=== PATIENT | female | born 1970 | race Caucasian/White ===

== ENCOUNTER 2017-10-07 06:27 | Emergency (ER) | payer SELFPAY ==
[2017-10-07] MEDS ORDERED: ACETAMINOPHEN 500 MG TAB ONE (06:54)
[2017-10-07] MEDS ORDERED: LEVALBUTEROL 0.63 MG/3 ML NEB ONE (06:54)
--- NOTE | 2017-10-07 07:59 | EDPHYS ---
Physician Documentation [facility] Name: Estelle Ashley Age: 47 yrs Sex: Female : 1970 Arrival Date: 10/07/2017 Time: 06:28 Bed 7 Private MD: Alberto Castaneda ED Physician Barron Albert HPI: 10/07 06:50 This 47 yrs old Female presents to ER via Ambulatory with complaints of Sore cp Throat, Fever. 06:50 The patient presents with sore throat. cp 06:50 Onset: The symptoms/episode began/occurred 4 day(s) ago. cp 06:50 Severity of symptoms: in the emergency department the symptoms are unchanged, despite cp home interventions. Associated signs and symptoms: Pertinent positives: cough, dysphagia, headache, Pertinent negatives vomiting. 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 - Social history:: Smoking status: Patient uses tobacco products, smokes one-half pack cigarettes per day. - Ebola Screening: : Patient negative for fever greater than or equal to 101.5 degrees Fahrenheit, and additional compatible Ebola Virus Disease symptoms. ROS: 06:55 Constitutional: Positive for body aches, fever, Negative for poor PO intake. cp 06:55 Eyes: Negative for injury, pain, redness, and discharge. cp 06:55 ENT: Positive for sore throat, Negative for ear pain, difficulty swallowing, difficulty handling secretions. 06:55 Neck: Negative for pain with movement, pain at rest, stiffness. 06:55 Respiratory: Positive for cough, Negative for shortness of breath, wheezing. 06:55 Abdomen/GI: Negative for abdominal pain, nausea, vomiting, and diarrhea. 06:55 Skin: Negative for cellulitis, rash. 06:55 Neuro: Positive for headache, Negative for altered mental status, weakness. 06:55 All other systems are negative. Exam: 07:00 Constitutional: The patient appears in no acute distress, alert, awake, non-toxic, well cp developed, well nourished, appears mildly ill 07:00 Head/Face: Normocephalic, atraumatic. cp 07:00 Eyes: Periorbital structures: appear normal, Conjunctiva: normal, no exudate, no injection, Sclera: no appreciated abnormality, Lids and lashes: appear normal, bilaterally. 07:00 ENT: External ear(s): are unremarkable, Ear canal(s): are normal, clear, TM's: bulging, is not appreciated, bilaterally, dullness, bilaterally, erythema, is not appreciated, bilaterally, Nose: is normal, Mouth: Lips: moist, Oral mucosa: pink and intact, moist, Posterior pharynx: Airway: no evidence of obstruction, patent, Tonsils: with erythema, no exudate, Uvula: midline, non-edematous, swelling, is not appreciated, erythema, that is moderate, exudate, is not appreciated, Voice: is hoarse. 07:00 Neck: ROM/movement: is normal, is supple, without pain, no range of motions limitations, no meningismus, no nuchal rigidity, Lymph nodes: lymphadenopathy is appreciated. 07:00 Chest/axilla: Inspection: normal, Palpation: is normal, no crepitus, no tenderness. 07:00 Cardiovascular: Rate: tachycardic, Rhythm: regular. 07:00 Respiratory: the patient does not display signs of respiratory distress, Respirations: normal, no use of accessory muscles, no retractions, no splinting, no tachypnea, labored breathing, is not present, Breath sounds: are clear throughout, no decreased breath sounds, no stridor, no wheezing. 07:00 Abdomen/GI: Inspection: abdomen appears normal, Palpation: abdomen is soft and cp non-tender, in all quadrants, involuntary guarding, is not appreciated. 07:00 Skin: cellulitis, is not appreciated, no rash present. Vital Signs: 06:45 BP 132 / 79; Pulse 115; Resp 19 S; Temp 100.2(O); Pulse Ox 100% on R/A; Weight 76.66 kg jd3 (R); Height 5 ft. 7 in. (170.18 cm) (R); Pain 10/10; 07:41 BP 126 / 83; Pulse 104; Resp 20 S; Temp 99.1(O); Pulse Ox 99% on R/A; Pain 5/10; jl7 08:07 BP 124 / 82; Pulse 98; Resp 16 S; Pulse Ox 99% on R/A; Pain 5/10; jl7 06:45 Body Mass Index 26.47 (76.66 kg, 170.18 cm) jd3 MDM: 06:41 Patient medically screened. cp 07:55 Data reviewed: vital signs, nurses notes, lab test result(s), radiologic studies, plain cp films. 07:55 Test interpretation: by ED physician or midlevel provider: plain radiologic studies. cp Counseling: I had a detailed discussion with the patient and/or guardian regarding: the historical points, exam findings, and any diagnostic results supporting the discharge/admit diagnosis, lab results, radiology results, to return to the emergency department if symptoms worsen or persist or if there are any questions or concerns that arise at home. Response to treatment: the patient's symptoms have mildly improved after treatment. 10/07 06:48 Order name: Strep; Complete Time: 07:23 cp 10/07 07:23 Interpretation: Reviewed. cp 10/07 06:48 Order name: Influenza Screen (a \T\ B); Complete Time: 07:23 cp 10/07 07:23 Interpretation: Reviewed. cp 10/07 06:48 Order name: XRAY Chest Pa And Lat (2 Views); Complete Time: 07:57 cp 10/08 07:57 Interpretation: Report reviewed. cp 10/07 07:15 Order name: Throat Culture EDMS 10/07 07:30 Order name: Urine Dipstick--Ancillary (enter results); Complete Time: 07:57 ag 10/07 07:30 Order name: Urine --Ancillary (enter results); Complete Time: 07:57 ag 10/07 06:48 Order name: Urine Dipstick-Ancillary (obtain specimen); Complete Time: 07:30 cp 10/07 06:48 Order name: Urine Test (obtain specimen); Complete Time: 07:30 cp Administered Medications: 06:54 Drug: Xopenex 1.25 mg Route: Inhalation; jd3 07:41 Follow up: Response: No adverse reaction jl7 06:54 Drug: Tylenol 1000 mg Route: PO; jd3 07:41 Follow up: Response: No adverse reaction; Temperature is decreased; Pain is decreased jl7 Disposition: 10/07/17 07:58 Discharged to Home. Impression: Acute tonsillitis, unspecified, Cough. - Condition is Stable. - Discharge Instructions: Tonsillitis, Cough, Adult. - Prescriptions for Tessalon Perles 100 mg Oral Capsule - take 1 capsule by ORAL route every 8 hours As needed; 15 capsule. Zithromax Z- Ricardo 250 mg Oral Tablet - take 1 tablet by ORAL route as directed for 5 days Day 1 - take two (2) tablets one time. Day 2, 3, 4 , 5 take one (1) tablet once daily.; 6 tablet. Albuterol Sulfate 90 mcg/actuation - inhale 1-2 puff by INHALATION route every 4-6 hours; 1 Inhaler. - Work release form, Medication Reconciliation Form, Thank You Letter, Antibiotic Education, Prescription Opioid Use form. - Follow up: Private Physician; When: 2 - 3 days; Reason: Recheck today's complaints. - Problem is new. - Symptoms have improved. Addendum: 10/08/2017 09:26 Co-signature as Attending Physician, Barron Albert MD I agree with the assessment and c boyce plan of care. Signatures: Dispatcher [employer] EDBarron Ashley MD MD cha Page, Corey, PA PA cp Leal, Jahala RN RN jl7 Vicente Noble RN RN jd3 Corrections: (The following items were deleted from the chart) 10/07 08:08 07:58 10/07/2017 07:58 Discharged to Home. Impression: Acute tonsillitis, unspecified; jl7 Cough. Condition is Stable. Forms are Medication Reconciliation Form, Thank You Letter, Antibiotic Education, Prescription Opioid Use. Follow up: Private Physician; When: 2 - 3 days; Reason: Recheck today's complaints. Problem is new. Symptoms have improved. cp
--- NOTE | 2017-10-07 07:59 | ER ---
Nurse's Notes [facility] Name: Estelle Ashley Age: 47 yrs Sex: Female : 1970 Arrival Date: 10/07/2017 Time: 06:28 Bed 7 Private MD: Alberto Castaneda Diagnosis: Acute tonsillitis, unspecified;Cough Presentation: 10/07 06:41 Presenting complaint: Patient states: "I don't know if I have the flu or what, but I jd3 have had a fever since last Sunday and my throat has been sore as well as having a splitting headache and cough.". Transition of care: patient was not received from another setting of care. Onset of symptoms was October 03, 2017. Risk Assessment: Do you want to hurt yourself or someone else? Patient reports no desire to harm self or others. Initial Sepsis Screen: Does the patient meet any 2 criteria? HR > 90 bpm. Yes Does the patient have a suspected source of infection? No. Patient's initial sepsis screen is negative. Care prior to arrival: None. 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 - Social history:: Smoking status: Patient uses tobacco products, smokes one-half pack cigarettes per day. - Ebola Screening: : Patient negative for fever greater than or equal to 101.5 degrees Fahrenheit, and additional compatible Ebola Virus Disease symptoms. Screenin:48 Abuse screen: Denies threats or abuse. Nutritional screening: No deficits noted. jd3 Tuberculosis screening: No symptoms or risk factors identified. Fall Risk Ambulatory Aid- None/Bed Rest/Nurse Assist (0 pts). Gait- Normal/Bed Rest/Wheelchair (0 pts) Mental Status- Oriented to own ability (0 pts). Total Gee Fall Scale indicates No Risk (0-24 pts). Assessment: 06:46 General: Appears uncomfortable, Behavior is calm, cooperative. Pain: Complains of pain jd3 in head and throat Pain currently is 10 out of 10 on a pain scale. Quality of pain is described as aching, pressure. Neuro: Level of Consciousness is awake, alert, obeys commands, Oriented to person, place, time, situation, Appropriate for age Moves all extremities. Full function Gait is steady, Pupils are PERRLA. Cardiovascular: Heart tones S1 S2 present Capillary refill < 3 seconds Patient's skin is warm and dry. Respiratory: Reports shortness of breath cough that is Airway is patent Respiratory effort is even, unlabored, Respiratory pattern is regular, symmetrical, Breath sounds are clear bilaterally. GI: Abdomen is round Bowel sounds present X 4 quads. Abd is soft and non tender X 4 quads. : No signs and/or symptoms were reported regarding the genitourinary system. EENT: Throat is pink. Derm: Skin is intact, Skin is dry, Skin is normal, Skin temperature is warm. Musculoskeletal: Circulation, motion, and sensation intact. Range of motion: intact in all extremities. 07:10 Reassessment: Patient appears in no apparent distress at this time. Pain: Complains of jl7 pain in forehead Pain does not radiate. Pain currently is 10 out of 10 on a pain scale. Quality of pain is described as pressure, "It feels different than my previous migraines." Is continuous. Neuro: Level of Consciousness is awake, alert, obeys commands, Oriented to person, place, time, situation, Moves all extremities. Gait is steady, Speech is normal, Facial symmetry appears normal, Pupils are PERRLA. Cardiovascular: Heart tones S1 S2 present Patient's skin is warm and dry. Respiratory: Airway is patent Respiratory effort is even, unlabored, Respiratory pattern is regular, symmetrical, Breath sounds are clear bilaterally. Derm: Skin is pink, warm \\T\\ dry. Vital Signs: 06:45 BP 132 / 79; Pulse 115; Resp 19 S; Temp 100.2(O); Pulse Ox 100% on R/A; Weight 76.66 kg jd3 (R); Height 5 ft. 7 in. (170.18 cm) (R); Pain 10/10; 07:41 BP 126 / 83; Pulse 104; Resp 20 S; Temp 99.1(O); Pulse Ox 99% on R/A; Pain 5/10; jl7 08:07 BP 124 / 82; Pulse 98; Resp 16 S; Pulse Ox 99% on R/A; Pain 5/10; jl7 06:45 Body Mass Index 26.47 (76.66 kg, 170.18 cm) jd3 ED Course: 06:28 Patient arrived in ED. al2 06:28 Alberto Castaneda MD is Private Physician. al2 06:32 Barron Garcia PA is PHCP. cp 06:41 Barron Garcia PA is PHCP. cp 06:41 Barron Albert MD is Attending Physician. cp 06:42 Triage completed. jd3 06:46 Arm band placed on. jd3 06:48 Patient has correct armband on for positive identification. Bed in low position. Call [place] light in reach. Side rails up X 1. 06:49 Vicente Noble RN is Primary Nurse. jd3 06:54 Strep Sent. jd3 06:54 Influenza Screen (a \\T\\ B) Sent. jd3 07:06 XRAY Chest Pa And Lat (2 Views) In Process Unspecified. EDMS 08:07 No provider procedures requiring assistance completed. Patient did not have IV access jl7 during this emergency room visit. Administered Medications: 06:54 Drug: Xopenex 1.25 mg Route: Inhalation; jd3 07:41 Follow up: Response: No adverse reaction jl7 06:54 Drug: Tylenol 1000 mg Route: PO; jd3 07:41 Follow up: Response: No adverse reaction; Temperature is decreased; Pain is decreased jl7 Outcome: 07:58 Discharge ordered by . cp 08:07 Discharged to home ambulatory. jl7 08:07 Condition: stable 08:07 Discharge instructions given to patient, Instructed on discharge instructions, follow up and referral plans. medication usage, Demonstrated understanding of instructions, follow-up care, medications, Prescriptions given X 3. 08:08 Patient left the ED. jl7 Signatures: Dispatcher [employer] EDMS Barron Garcia PA PA cp Leal, Jahala, RN RN jl7 Vicente Noble RN RN jd3 Summer Iqbal al2
[2017-10-07 08:07] LABS: Urine Blood 3+ (NEG); Urine Glucose 2+ (NEG); Urine Protein 3+ (NEG); Urine Specific Gravity >1.030 (1.005-1.030)
--- NOTE | 2017-10-07 11:53 | RAD REPORT ---
EXAM DESCRIPTION: RAD - Chest Pa And Lat (2 Views) - 10/07/2017 7:06 am CLINICAL HISTORY: Cough;Fever Chest pain. COMPARISON: Chest Single View dated 01/08/2017; Chest Single View dated 01/07/2017 FINDINGS: The lungs are clear. The heart is normal in size. No displaced fractures. IMPRESSION: No acute or concerning finding suspected.
== END 2017-10-07 08:08 | disposition home or self-care (01) ==
LOC: ER 06:27
DX: J03.90 Acute tonsillitis, unspecified (principal); I10 Essential (primary) hypertension; E11.9 Type 2 diabetes mellitus without complications; F17.210 Nicotine dependence, cigarettes, uncomplicated; Z88.6 Allergy status to analgesic agent
CPT/HCPCS: 71046; 81003; 81025; 87070; 87081; 87804; 99284

== ENCOUNTER 2017-10-08 11:18 | Emergency (ER) | payer SELFPAY ==
[2017-10-08] MEDS ORDERED: NA CHLORIDE 0.9% 1,000 ML ONE (12:00)
--- NOTE | 2017-10-08 12:19 | RAD REPORT ---
EXAM DESCRIPTION: RAD - Chest Single View - 10/08/2017 12:13 pm CLINICAL HISTORY: dysphagia, shortness of breath Chest pain. COMPARISON: Chest Pa And Lat (2 Views) dated 10/07/2017; Chest Single View dated 01/08/2017; Chest Sing le View dated 01/07/2017 FINDINGS: Portable technique limits examination quality. The lungs are grossly clear. The heart is normal in size. No displaced fractures. IMPRESSION: No acute intrathoracic process suspected.
[2017-10-08 12:20] LABS: Absolute Lymphocytes (CBC) 1.9 K/uL (0.7-4.9); Absolute Neutrophil 7.4 K/uL (1.8-8.0); Basophils % 0.8 % (0-1.3); Eosinophils % 2.6 % (0-4.4); Hematocrit 30.9 % (36.0-45.0); Lymphocytes % 17.9 % (15.3-44.8); MCH 28.8 pg (27.0-35.0); MCV 84.1 fL (80-100); MPV 9.8 fL (7.6-11.3); Monocytes % 9.3 % (3.3-12.3); RBC Red Blood Cell Count 3.68 M/uL (3.86-4.86)
[2017-10-08 12:35] LABS: Albumin 2.9 g/dL (3.4-5.0); Bilirubin Total 0.4 mg/dL (0.2-1.0); Potassium 3.9 mmol/L (3.5-5.1); Protein, Total 7.2 g/dL (6.4-8.2)
--- NOTE | 2017-10-08 13:12 | RAD REPORT ---
EXAM DESCRIPTION: CT - Soft Tissue Neck W/Contr CLINICAL HISTORY: dysphagia COMPARISON: No comparisons TECHNIQUE All CT scans are performed using dose optimization technique as appropriate and may includ e automated exposure control or mA/KV adjustment according to patient size. FINDINGS: Significant enlargement of the adenoidal tissue is seen. Nasopharyngeal and nasal cavity s oft tissue is also significantly prominent. The mucosa of the pharynx shows significant edema and enh ancement. There is significant enlargement of both palatine tonsils with right-sided rim enhancing fl uid collection measuring 9 x 7 mm seen likely representing a peritonsillar abscess. No prevertebral space abscess is seen. The lingual tonsils are slightly thickened. A 10 x 8 mm low-density lesion is seen in the right aspec t of the vallecula. Multiple enlarged lymph nodes are seen along the neck bilaterally, on the right the largest measuring 12 mm, on the left the largest measuring 16 mm. Carotid artery and jugular vein bilaterally shows no rmal flow. Symmetric salivary glands are noted. Hyperostosis of the left maxillary antrum is seen suggesting chronic sinusitis. IMPRESSION: Significant lymphoid enlargement and mucosal edema and enhancement in the pharynx is mos t compatible with infection. A small right-sided peritonsillar abscess is suspected measuring 9 x 7 m m. 10 x 8 mm low-density lesion in the right aspect of the vallecula is nonspecific. Multiple enlarged lymph nodes in the neck likely represent cervical lymphadenitis.
[2017-10-08] MEDS ORDERED: DEXAMETHASONE 10 MG/ML VIAL ONE (13:28)
[2017-10-08] MEDS ORDERED: NA CHLORIDE 0.9% 100 ML IV ONE (13:29)
[2017-10-08] MEDS ORDERED: CLINDAMYCIN 900MG/D5W 900 MG/50 ML BAG IV ONE (13:29)
[2017-10-08] MEDS ORDERED: CEFTRIAXONE/SWI 1gm 1 GM/10 ML SYR ONE (13:36)
--- NOTE | 2017-10-08 13:43 | EDPHYS ---
Physician Documentation [facility] Name: Estelle Ashley Age: 47 yrs Sex: Female : 1970 Arrival Date: 10/08/2017 Time: 11:22 Bed 13 Private MD: Alberto Castaneda ED Physician Titus Rosado HPI: 10/08 11:51 This 47 yrs old Female presents to ER via Ambulatory with complaints of cp Dizziness, Breathing Difficulty. 11:51 The patient presents with lightheadedness. cp 11:51 The patient presents with sore throat, dysphagia, of both solids and liquids. cp 11:51 The patient describes throat pain as constant. cp 11:51 Associated signs and symptoms: Pertinent negatives fever. The patient has been recently cp seen at the [facility] Emergency Department, yesterday, for similar complaints was given a prescription for antibiotics. 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 - Social history:: Smoking status: Patient uses tobacco products, smokes one-half pack cigarettes per day. - Ebola Screening: : No symptoms or risks identified at this time. ROS: 12:00 Constitutional: Negative for body aches, chills, fever, poor PO intake. cp 12:00 Eyes: Negative for injury, pain, redness, and discharge. cp 12:00 ENT: Positive for difficulty swallowing, sore throat, Negative for drainage from ear(s), ear pain, dental pain, difficulty handling secretions. 12:00 Neck: Positive for swollen nodes, tenderness, Negative for pain with movement, pain at rest, stiffness. 12:00 Cardiovascular: Negative for chest pain, edema, palpitations. 12:00 Respiratory: Negative for shortness of breath, wheezing. 12:00 Abdomen/GI: Negative for abdominal pain, nausea, vomiting, and diarrhea. 12:00 Skin: Negative for cellulitis, rash. 12:00 Neuro: Positive for dizziness, Negative for altered mental status, headache, syncope, near syncope, weakness. 12:00 All other systems are negative. Exam: 12:05 Constitutional: The patient appears in no acute distress, alert, awake, cp non-diaphoretic, non-toxic, well developed, well nourished. 12:05 Head/Face: Normocephalic, atraumatic. cp 12:05 Eyes: Periorbital structures: appear normal, Pupils: equal, round, and reactive to light and accomodation, Extraocular movements: intact throughout, Conjunctiva: normal, no exudate, no injection, Sclera: no appreciated abnormality, Lids and lashes: appear normal, bilaterally. 12:05 ENT: External ear(s): are unremarkable, Ear canal(s): are normal, clear, TM's: bulging, is not appreciated, bilaterally, erythema, is not appreciated, bilaterally, Nose: is normal, Mouth: Lips: moist, Oral mucosa: moist, Posterior pharynx: Airway: no evidence of obstruction, patent, Tonsils: bilaterally enlarged, right larger than left, Uvula: midline, non-edematous, swelling, that is mild, erythema, that is moderate, exudate, is not appreciated, Voice: is hoarse. 12:05 Neck: ROM/movement: is normal, is supple, without pain, no range of motions limitations, no meningismus, no nuchal rigidity, Lymph nodes: lymphadenopathy is appreciated, anterior cervical nodes. 12:05 Chest/axilla: Inspection: normal, Palpation: is normal, no crepitus, no tenderness. 12:05 Cardiovascular: Rate: tachycardic, Rhythm: regular, Edema: is not appreciated, JVD: is not appreciated. 12:05 Respiratory: the patient does not display signs of respiratory distress, Respirations: normal, no use of accessory muscles, no retractions, no splinting, no tachypnea, labored breathing, is not present, Breath sounds: are clear throughout, no decreased breath sounds, no stridor, no wheezing. 12:05 Abdomen/GI: Exam negative for discomfort, distension, guarding, Inspection: abdomen appears normal. 12:05 Skin: cellulitis, is not appreciated, no rash present. Vital Signs: 11:32 BP 123 / 75; Pulse 102; Resp 18; Temp 98.0; Pulse Ox 100% ; Weight 76.66 kg; Height 5 sv ft. 7 in. (170.18 cm); Pain 8/10; 12:17 BP 129 / 79; Pulse 98; Resp 18; Pulse Ox 99% on R/A; aj 12:45 BP 139 / 87; Pulse 81; Resp 19; Pulse Ox 99% on R/A; aj 14:12 BP 121 / 81; Pulse 79; Resp 19; Pulse Ox 99% on R/A; aj 11:32 Body Mass Index 26.47 (76.66 kg, 170.18 cm) sv MDM: 11:43 Patient medically screened. 13:20 Data reviewed: vital signs, nurses notes, lab test result(s), radiologic studies, CT cp scan. 13:30 Physician consultation: Hanna Rich MD was called at 13:25, was contacted at 13:25, regarding consult, patient's condition, and will see patient in office, tomorrow, would like medications started, Rocephin, clindamycin. 10/08 11:53 Order name: CBC with Diff; Complete Time: 12:57 10/08 12:57 Interpretation: Normal except: RBC 3.68; HGB 10.6; HCT 30.9. 10/08 11:53 Order name: CMP; Complete Time: 12:57 10/08 11:53 Order name: CT Soft Tissue Neck W/contr; Complete Time: 13:18 10/08 11:53 Order name: [place] Screen Profile; Complete Time: 12:57 10/08 11:53 Order name: XRAY Chest (1 view); Complete Time: 12:57 10/08 11:53 Order name: IV; Complete Time: 12:17 cp Administered Medications: 12:16 Drug: NS 0.9% 1000 ml Route: IV; Rate: 1 bolus; Site: right antecubital; aj 13:40 Drug: Clindamycin 900 mg Route: IVPB; Infused Over: 30 mins; Site: right antecubital; aj 13:40 Drug: Decadron - Dexamethasone 10 mg Route: IVP; Site: right antecubital; aj 13:40 Drug: Rocephin 1 grams Route: IV; Rate: bolus; Site: right antecubital; aj 13:51 CANCELLED (route changed): Zofran 4 mg IVP once; over 2 minutes aj 13:52 CANCELLED (medication changed): fentaNYL (PF) 25 mcg IVP once aj 13:52 Drug: Lortab Liquid 15 ml Route: PO; aj 13:53 Drug: Zofran 4 mg Route: PO; aj Disposition: 15:26 Co-signature as Attending Physician, Titus Rosado MD I agree with the assessment and kdr plan of care. Disposition: 10/08/17 13:42 Discharged to Home. Impression: Peritonsillar abscess - Right. - Condition is Stable. - Discharge Instructions: Peritonsillar Abscess. - Prescriptions for Clindamycin HCl 300 mg Oral Capsule - take 1 capsule by ORAL route every 6 hours for 10 days; 40 capsule. Tylenol- Codeine #3 300-30 mg Oral Tablet - take 2 tablets by ORAL route every 6 hours As needed; 15 tablet. - Medication Reconciliation Form, Thank You Letter, Antibiotic Education, Prescription Opioid Use form. - Follow up: Hanna Rich MD; When: Tomorrow; Reason: Recheck today's complaints, \T\0830 in clinic. - Problem is new. - Symptoms have improved. Signatures: Dispatcher [employer] Hanna Huber RN RN sv Myers, Amanda, RN RN aj Rittger, Kevin, MD MD kdr Barron Garcia, PA PA cp Corrections: (The following items were deleted from the chart) 13:51 13:23 Zofran 4 mg IVP once; over 2 minutes ordered. cp aj 13:52 13:23 fentaNYL (PF) 25 mcg IVP once ordered. cp aj 14:15 13:42 10/08/2017 13:42 Discharged to Home. Impression: Peritonsillar abscess - Right. aj Condition is Stable. Forms are Medication Reconciliation Form, Thank You Letter, Antibiotic Education, Prescription Opioid Use. Follow up: Hanna Rich; When: Tomorrow; Reason: Recheck today's complaints, \T\0830 in clinic. Problem is new. Symptoms have improved. cp
--- NOTE | 2017-10-08 13:43 | ER ---
Nurse's Notes [facility] Name: Estelle Ashley Age: 47 yrs Sex: Female : 1970 Arrival Date: 10/08/2017 Time: 11:22 Bed 13 Private MD: Alberto Castaneda Diagnosis: Peritonsillar abscess-Right Presentation: 10/08 11:31 Presenting complaint: Patient states: seen here yesterday and given antibiotics for sv throat. Reports taking her inhaler at home with no relief. Pt reports feeling like she cannot breathe well. Pt reports bilateral tonsils swollen. Transition of care: patient was not received from another setting of care. Onset of symptoms was October 07, 2017. Care prior to arrival: None. 11:31 Method Of Arrival: Ambulatory sv 11:31 Acuity: MOHIT 3 sv 14:14 Risk Assessment: Do you want to hurt yourself or someone else? Patient reports no aj desire to harm self or others. Initial Sepsis Screen: Does the patient meet any 2 criteria? No. Patient's initial sepsis screen is negative. Does the patient have a suspected source of infection? No. Patient's initial sepsis screen is negative. Triage Assessment: 14:14 General: Appears in no apparent distress. Respiratory: Onset: The symptoms/episode aj began/occurred today. AURICULAR ACUPUNCTURIST: 14:14 LMP N/A - Post-menopause aj Historical: - Allergies: 11:32 Hydrocodone-Acetaminophen; sv - PMHx: 11:32 Diabetes - NIDDM; Hypertension; sv - PSHx: 11:32 None; sv - Immunization history:: Adult Immunizations up to date. - Social history:: Smoking status: Patient uses tobacco products, smokes one-half pack cigarettes per day. - Ebola Screening: : No symptoms or risks identified at this time. Screenin:17 Abuse screen: Denies threats or abuse. Denies injuries from another. Nutritional aj screening: No deficits noted. Tuberculosis screening: No symptoms or risk factors identified. Fall Risk None identified. Assessment: 12:17 General: Appears in no apparent distress. comfortable, Behavior is calm, cooperative, aj appropriate for age. Pain: Denies pain. Neuro: Level of Consciousness is awake, alert, obeys commands, Oriented to person, place, time, situation, Appropriate for age. Cardiovascular: Capillary refill < 3 seconds in bilateral fingers Patient's skin is warm and dry. Rhythm is regular. Respiratory: Airway is patent Respiratory effort is even, unlabored, Respiratory pattern is regular, symmetrical, Breath sounds are clear bilaterally. Respiratory: Reports cough that is productive. EENT: Reports pain when swallowing. Derm: Skin is intact, is healthy with good turgor, Skin is pink, warm \T\ dry. normal. 14:12 Reassessment: Patient appears in no apparent distress at this time. No changes from aj previously documented assessment. Patient and/or family updated on plan of care and expected duration. Pain level reassessed. Patient is alert, oriented x 3, equal unlabored respirations, skin warm/dry/pink. Patient states feeling better. Patient states symptoms have improved. Vital Signs: 11:32 BP 123 / 75; Pulse 102; Resp 18; Temp 98.0; Pulse Ox 100% ; Weight 76.66 kg; Height 5 sv ft. 7 in. (170.18 cm); Pain 8/10; 12:17 BP 129 / 79; Pulse 98; Resp 18; Pulse Ox 99% on R/A; aj 12:45 BP 139 / 87; Pulse 81; Resp 19; Pulse Ox 99% on R/A; aj 14:12 BP 121 / 81; Pulse 79; Resp 19; Pulse Ox 99% on R/A; aj 11:32 Body Mass Index 26.47 (76.66 kg, 170.18 cm) sv ED Course: 11:22 Patient arrived in ED. sb2 11:22 Alberto Castaneda MD is Private Physician. sb2 11:32 Triage completed. sv 11:33 Arm band placed on left wrist. Patient placed in waiting room. sv 11:43 Barron Garcia PA is PHCP. cp 11:43 Titus Rosado MD is Attending Physician. cp 11:54 Mahogany Rojas, EDITH is Primary Nurse. aj 12:02 Radiology exam delayed due to IV insertion attempt and/or patient not having jb2 appropriate IV at this time. 12:11 X-ray completed. Portable x-ray completed in exam room. Patient tolerated procedure jb2 well. 12:11 XRAY Chest (1 view) In Process Unspecified. EDMS 12:17 Patient has correct armband on for positive identification. aj 12:17 Inserted saline lock: 22 gauge in right antecubital area, using aseptic technique. aj Blood collected. 12:21 Radiology exam delayed due to lab results not completed at this time. (BUN/Creatinine). vr 12:48 CT completed. Patient tolerated procedure well. Patient moved to CT via wheelchair. sj Patient moved back from CT. 12:55 CT Soft Tissue Neck W/contr In Process Unspecified. EDMS 13:41 Hanna Rich MD is Referral Physician. cp 14:12 No provider procedures requiring assistance completed. IV discontinued, intact, aj bleeding controlled, No redness/swelling at site. Pressure dressing applied. Administered Medications: 12:16 Drug: NS 0.9% 1000 ml Route: IV; Rate: 1 bolus; Site: right antecubital; aj 13:40 Drug: Clindamycin 900 mg Route: IVPB; Infused Over: 30 mins; Site: right antecubital; aj 13:40 Drug: Decadron - Dexamethasone 10 mg Route: IVP; Site: right antecubital; aj 13:40 Drug: Rocephin 1 grams Route: IV; Rate: bolus; Site: right antecubital; aj 13:51 CANCELLED (route changed): Zofran 4 mg IVP once; over 2 minutes aj 13:52 CANCELLED (medication changed): fentaNYL (PF) 25 mcg IVP once aj 13:52 Drug: Lortab Liquid 15 ml Route: PO; aj 13:53 Drug: Zofran 4 mg Route: PO; aj Outcome: 13:42 Discharge ordered by MD. cp 14:12 Discharged to home ambulatory, with family. aj 14:12 Condition: good 14:12 Discharge instructions given to patient, family, Instructed on discharge instructions, follow up and referral plans. medication usage, Demonstrated understanding of instructions, follow-up care, medications, Prescriptions given X 2. 14:15 Patient left the ED. aj Signatures: Dispatcher [employer] EDKS Hanna Brown, Mahogany Lim RN, RN RN aj Buechter, Jesse jb2 Jones, Susan sj Davis, Victoria vr Page, Corey, PA PA cp Billeau, Sheri sb2
[2017-10-08] MEDS ORDERED: HYDROCOD 2.5mg-ACETAMIN 108mg/5mL Soln ONE (13:51)
[2017-10-08] MEDS ORDERED: ONDANSETRON 4 MG (ODT) TAB ONE (13:51)
== END 2017-10-08 14:15 | disposition home or self-care (01) ==
LOC: ER 11:18
DX: J36 Peritonsillar abscess (principal); I10 Essential (primary) hypertension; F17.210 Nicotine dependence, cigarettes, uncomplicated; Z88.5 Allergy status to narcotic agent
CPT/HCPCS: 36415; 70491; 71045; 80053; 85025; 86308; 96374; 96375; 99284; J0696; J1100; J7030; Q9967

== ENCOUNTER 2018-03-06 21:56 | Emergency (ER) | payer SELFPAY ==
[2018-03-06] MEDS ORDERED: NA CHLORIDE 0.9% 1,000 ML ONE ×2 (22:38→23:46)
[2018-03-06] MEDS ORDERED: ACETAMINOPHEN 500 MG TAB ONE (22:38)
[2018-03-06] MEDS ORDERED: ONDANSETRON 4 MG/2 ML VIAL ONE (22:38)
[2018-03-06] MEDS ORDERED: FAMOTIDINE 20 MG/2 ML VIAL IV ONE (22:38)
[2018-03-06 22:41] LABS: Absolute Lymphocytes (CBC) 0.9 K/uL (0.7-4.9); Absolute Monocytes 0.4 K/uL (0.1-1.3); Absolute Neutrophil 9.2 K/uL (1.8-8.0); Basophils % 0.3 % (0-1.3); Eosinophils % 2.7 % (0-4.4); Hematocrit 33.2 % (36.0-45.0); MCH 28.5 pg (27.0-35.0); MCV 84.3 fL (80-100); MPV 10.1 fL (7.6-11.3); RBC Red Blood Cell Count 3.94 M/uL (3.86-4.86)
[2018-03-06 23:03] LABS: ALT/SGPT 55 U/L (12-78); AST/SGOT 33 U/L (15-37); Albumin 3.3 g/dL (3.4-5.0); Alkaline Phosphatase 121 U/L (45-117); BUN Blood Urea Nitrogen 21 mg/dL (7-18); Bicarbonate 28 mmol/L (21-32); Bilirubin Direct 0.2 mg/dL (0-0.2); Bilirubin Total 0.8 mg/dL (0.2-1.0); Glucose Level 191 mg/dL (74-106); Lipase 125 U/L (73-393); Potassium 4.7 mmol/L (3.5-5.1); Protein, Total 7.9 g/dL (6.4-8.2); Sodium Level 138 mmol/L (136-145); Troponin (Emerg Dept Use Only) < 0.02 ng/mL (0.0-0.045)
[2018-03-07] MEDS ORDERED: IBUPROFEN 400 MG TAB ONE (00:32)
--- NOTE | 2018-03-07 01:44 | EDPHYS ---
Physician Documentation [facility] Name: Estelle Ashley Age: 48 yrs Sex: Female : 1970 Arrival Date: 03/06/2018 Time: 22:07 Bed 17 Private MD: ED Physician Kurt Salvador HPI: 03/06 22:20 This 48 yrs old Female presents to ER via EMS with complaints of fever, cp nausea/vomiting. 22:20 The patient presents to the emergency department with nausea, with "dry heaves", cp vomiting, that is continuous, diarrhea, that is intermittent. 22:20 Onset: The symptoms/episode began/occurred today. Possible causes: bad food exposure. cp Associated signs and symptoms: Pertinent positives: abdominal pain, fever, Pertinent negatives: constipation, GI bleeding. Severity of symptoms: in the emergency department the symptoms are unchanged despite home interventions. Historical: - Allergies: 22:23 Hydrocodone-Acetaminophen; aa1 - Home Meds: 22:23 glipizide 5 mg oral tab 1 tab 2 times per day [Active]; lisinopril 2.5 mg oral tab 1 aa1 tab once daily [Active]; metformin 500 mg oral tab 2 tabs 2 times per day [Active]; atorvastatin 40 mg oral tab 1 tab once daily [Active]; - PMHx: 22:23 Diabetes - NIDDM; Hypertension; macular degeneration; neuropathy; aa1 - PSHx: 22:23 None; aa1 - Immunization history:: Flu vaccine is not up to date. - Social history:: Smoking status: Patient uses tobacco products, smokes one-half pack cigarettes per day. - Ebola Screening: : Patient denies exposure to infectious person Patient denies travel to an Ebola-affected area in the 21 days before illness onset. ROS: 22:30 Constitutional: Positive for fever, poor PO intake. cp 22:30 Eyes: Negative for injury, pain, redness, and discharge. cp 22:30 ENT: Negative for drainage from ear(s), ear pain, rhinorrhea, sore throat, difficulty swallowing, difficulty handling secretions. 22:30 Neck: Negative for pain with movement, pain at rest, stiffness, tenderness. 22:30 Cardiovascular: Negative for chest pain, edema. 22:30 Respiratory: Positive for cough, with no reported sputum, Negative for wheezing. 22:30 : Negative for urinary symptoms. 22:30 Skin: Negative for cellulitis, rash. 22:30 Neuro: Positive for headache, Negative for altered mental status, weakness. 22:30 Abdomen/GI: Positive for abdominal pain, nausea, vomiting, and diarrhea, Negative for cp hematemesis, black/tarry stool, rectal bleeding. 22:30 All other systems are negative. Exam: 22:35 Constitutional: The patient appears in no acute distress, alert, awake, non-toxic, well cp developed, well nourished. 22:35 Head/Face: Normocephalic, atraumatic. cp 22:35 Eyes: Periorbital structures: appear normal, Pupils: equal, round, and reactive to light and accomodation, Conjunctiva: normal, no exudate, no injection, Sclera: no appreciated abnormality, Lids and lashes: appear normal, bilaterally. 22:35 ENT: External ear(s): are unremarkable, Ear canal(s): are normal, clear, TM's: bulging, is not appreciated, bilaterally, dullness, bilaterally, erythema, is not appreciated, bilaterally, Nose: is normal, Mouth: Lips: moist, Oral mucosa: moist, Posterior pharynx: is normal, airway is patent, no erythema, no exudate. 22:35 Neck: ROM/movement: is normal, is supple, no range of motions limitations, no meningismus, no nuchal rigidity, Lymph nodes: no appreciated lymphadenopathy. 22:35 Chest/axilla: Inspection: normal, Palpation: is normal, no crepitus, no tenderness. 22:35 Cardiovascular: Rate: tachycardic, Rhythm: regular. 22:35 Respiratory: the patient does not display signs of respiratory distress, Respirations: normal, no use of accessory muscles, no retractions, no splinting, no tachypnea, labored breathing, is not present, Breath sounds: are clear throughout, no decreased breath sounds, no stridor, no wheezing. 22:35 Abdomen/GI: Inspection: abdomen appears normal, Bowel sounds: active, all quadrants, Palpation: soft, in all quadrants, moderate abdominal tenderness, in all quadrants. 22:35 Back: CVA tenderness, is absent. 22:35 Skin: cellulitis, is not appreciated, no rash present. 22:35 Neuro: Orientation: to person, place \\T\\ time. Mentation: is normal, Cerebellar function: is grossly normal, Motor: moves all fours, strength is normal, Sensation: is normal. 22:45 ECG was reviewed by the Attending Physician. cp Vital Signs: 22:23 BP 151 / 90; Pulse 115; Resp 18; Temp 102.9(O); Pulse Ox 98% on R/A; Weight 82.55 kg; aa1 Height 5 ft. 7 in. (170.18 cm); Pain 5/10; 23:30 BP 129 / 84; Pulse 108; Resp 22; Temp 101.0(O); Pulse Ox 96% on R/A; aa1 03/07 00:43 BP 109 / 65; Pulse 108; Resp 18; Temp 99.9(O); Pulse Ox 99% on R/A; aa1 01:34 BP 98 / 52; Pulse 103; Resp 16; Pulse Ox 96% on R/A; aa1 03/06 22:23 Body Mass Index 28.50 (82.55 kg, 170.18 cm) aa1 MDM: 03/06 22:15 Patient medically screened. cp 23:00 Differential diagnosis: gastritis, cholecystitis, pancreatitis, diverticulitis, viral cp gastroenteritis, gastroenteritis, colitis, DKA. 03/07 01:42 Data reviewed: vital signs, nurses notes, lab test result(s), EKG, radiologic studies, cp CT scan, plain films. 01:42 Test interpretation: by ED physician or midlevel provider: ECG, plain radiologic cp studies. Counseling: I had a detailed discussion with the patient and/or guardian regarding: the historical points, exam findings, and any diagnostic results supporting the discharge/admit diagnosis, lab results, radiology results, to return to the emergency department if symptoms worsen or persist or if there are any questions or concerns that arise at home. Response to treatment: the patient's symptoms have markedly improved after treatment. ED course: VSS. Fever resolved and nausea improved. Patient tolerating po fluids. Will discharge to home for continued monitoring. 03/06 22:13 Order name: Basic Metabolic Panel cp 03/06 22:13 Order name: CBC with Diff cp 03/06 22:13 Order name: Creatinine for Radiology cp 03/06 22:13 Order name: Hepatic Function cp 03/06 22:13 Order name: Lipase cp 03/06 22:13 Order name: Influenza Screen (a \\T\\ B) / 22:13 Order name: Troponin (emerg Dept Use Only) cp / 22:45 Order name: CBC with Automated Diff; Complete Time: 23:46 EDMS 12 23:47 Interpretation: Normal except: HGB 11.2; HCT 33.2; KRISS% 85.0; LYM% 8.0; NEUT A 9.2. / 22:59 Order name: Creatinine (Radiology Only); Complete Time: 23:46 EDMS 03/06 23:03 Order name: Basic Metabolic Panel; Complete Time: 23:46 EDMS 03/06 23:47 Interpretation: Normal except: GLUC 191; BUN 21; GFR 60. cp / 23:03 Order name: Liver (Hepatic) Function; Complete Time: 23:46 EDMS 12 23:47 Interpretation: Normal except: ALK 121; ALB 3.3; GLOB 4.6; A/G 0.7. / 23:03 Order name: Troponin (Emerg Dept Use Only); Complete Time: 23:46 EDMS 03/06 23:03 Order name: Lipase; Complete Time: 23:46 EDMS 03/06 23:13 Order name: Influenza Screen (A ; Complete Time: 23:46 EDMS 03/06 22:13 Order name: IV Saline Lock; Complete Time: 22:26 03/06 22:13 Order name: Labs collected and sent; Complete Time: 22:26 03/06 22:13 Order name: XRAY Chest (1 view) 03/06 22:13 Order name: Urine Dipstick-Ancillary (obtain specimen); Complete Time: 00:20 03/06 22:13 Order name: Urine Test (obtain specimen); Complete Time: 00:20 03/06 22:13 Order name: EKG; Complete Time: 22:14 03/06 22:29 Order name: CT Abd/Pelvis - W/Contrast: give oral contrast 03/07 00:21 Order name: Urine Dipstick--Ancillary (enter results) 4 03/07 00:22 Order name: Urine --Ancillary (enter results) 4 03/06 22:13 Order name: EKG - Nurse/Tech; Complete Time: 22:47 03/07 01:37 Order name: PO challenge; Complete Time: 01:53 cp EC/05 22:45 Rate is 115 beats/min. Rhythm is regular. IA interval is normal. QRS interval is cp normal. QT interval is normal. Interpreted by me. Reviewed by me. Administered Medications: 22:50 Drug: Zofran 4 mg Route: IVP; Site: right forearm; aa1 23:50 Follow up: Response: No adverse reaction; Nausea is decreased aa1 22:50 Drug: Pepcid 20 mg Route: IVP; Site: right antecubital; aa1 03/07 00:21 Follow up: Response: No adverse reaction; Marked relief of symptoms aa1 03/06 22:50 Drug: NS 0.9% 500 ml Route: IV; Rate: bolus; Site: right forearm; aa1 23:51 Follow up: IV Status: Completed infusion aa1 22:50 Drug: Tylenol 1000 mg Route: PO; aa1 23:50 Follow up: Response: No adverse reaction; Temperature is decreased aa1 23:52 Drug: NS 0.9% 1000 ml Route: IV; Rate: 100 ml/hr; Site: right forearm; aa1 03/07 01:54 Follow up: IV Status: Completed infusion aa1 00:42 Drug: Motrin 800 mg Route: PO; aa1 01:33 Follow up: Response: No adverse reaction; Pain is decreased aa 01:33 Drug: NS 0.9% 1000 ml Route: IV; Rate: 1 bolus; Site: right forearm; aa1 01:54 Follow up: IV Status: Completed infusion aa1 Disposition: 19:15 Co-signature as Attending Physician, Kurt Salvador MD. Disposition: 03/07/18 01:43 Discharged to Home. Impression: Nausea and vomiting, Diarrhea, unspecified. - Condition is Stable. - Discharge Instructions: Food Choices to Help Relieve Diarrhea, Adult, Diarrhea, Adult, Nausea and Vomiting, Adult. - Prescriptions for Bentyl 20 mg Oral Tablet - take 1 tablet by ORAL route every 6 hours As needed; 20 tablet. Zofran 4 mg Oral Tablet - take 1 tablet by ORAL route every 12 hours As needed; 20 tablet. - Medication Reconciliation Form, Thank You Letter, Antibiotic Education, Prescription Opioid Use form. - Follow up: Private Physician; When: 1 - 2 days; Reason: Recheck today's complaints. - Problem is new. - Symptoms have improved. Signatures: Dispatcher [employer] EDMS Katey Espinoza RN RN aa1 Barron Garcia PA PA cp Starr, Gregory, MD MD gs Corrections: (The following items were deleted from the chart) 01:42 03/06 22:30 Abdomen/GI: Positive for abdominal pain, nausea, vomiting, Negative for cp diarrhea, constipation, black/tarry stool, rectal bleeding, cp 03/07 01:42 03/06 22:30 All other systems are negative, cp cp 03/07 01:55 01:43 03/07/2018 01:43 Discharged to Home. Impression: Nausea and vomiting; Diarrhea, aa1 unspecified. Condition is Stable. Forms are Medication Reconciliation Form, Thank You Letter, Antibiotic Education, Prescription Opioid Use. Follow up: Private Physician; When: 1 - 2 days; Reason: Recheck today's complaints. Problem is new. Symptoms have improved. cp
--- NOTE | 2018-03-07 01:44 | ER ---
Nurse's Notes [facility] Name: Estelle Ashley Age: 48 yrs Sex: Female : 1970 Arrival Date: 03/06/2018 Time: 22:07 Bed 17 Private MD: Diagnosis: Nausea and vomiting;Diarrhea, unspecified Presentation: 03/06 22:19 Presenting complaint: Patient states: fever, N/V x 4 hrs. Reports temp at home of 102 aa1 but did not take any medication for it. Transition of care: patient was not received from another setting of care. Onset of symptoms was March 06, 2018 at 18:00. Risk Assessment: Do you want to hurt yourself or someone else? Patient reports no desire to harm self or others. Initial Sepsis Screen: Does the patient meet any 2 criteria? Temp <36.0*C (96.8*F)) or > 38.3*C (100.9*F). HR > 90 bpm. Does the patient have a suspected source of infection? No. Patient's initial sepsis screen is negative. Care prior to arrival: None. 22:19 Method Of Arrival: EMS: [facility] aa1 22:19 Acuity: MOHIT 3 aa1 Historical: - Allergies: 22:23 Hydrocodone-Acetaminophen; aa1 - Home Meds: 22:23 glipizide 5 mg oral tab 1 tab 2 times per day [Active]; lisinopril 2.5 mg oral tab 1 aa1 tab once daily [Active]; metformin 500 mg oral tab 2 tabs 2 times per day [Active]; atorvastatin 40 mg oral tab 1 tab once daily [Active]; - PMHx: 22:23 Diabetes - NIDDM; Hypertension; macular degeneration; neuropathy; aa1 - PSHx: 22:23 None; aa1 - Immunization history:: Flu vaccine is not up to date. - Social history:: Smoking status: Patient uses tobacco products, smokes one-half pack cigarettes per day. - Ebola Screening: : Patient denies exposure to infectious person Patient denies travel to an Ebola-affected area in the 21 days before illness onset. Screenin:25 Abuse screen: Denies threats or abuse. Denies injuries from another. Nutritional aa1 screening: No deficits noted. Tuberculosis screening: No symptoms or risk factors identified. Fall Risk None identified. Assessment: 22:30 General: Appears in no apparent distress. comfortable, Behavior is calm, cooperative, aa1 appropriate for age. Pain: Complains of pain in left lower quadrant Pain currently is 5 out of 10 on a pain scale. Quality of pain is described as sharp, Pain began 4 hours ago. Is intermittent. Neuro: Level of Consciousness is awake, alert, obeys commands, Oriented to person, place, time, situation, Moves all extremities. Speech is normal. Respiratory: Airway is patent Respiratory effort is even, unlabored, Respiratory pattern is regular, symmetrical. GI: Abdomen is non-distended, Abd is soft X 4 quads Reports lower abdominal pain, nausea, vomiting. : No signs and/or symptoms were reported regarding the genitourinary system. EENT: No signs and/or symptoms were reported regarding the EENT system. Derm: Skin is intact, is healthy with good turgor, Skin is pink, warm \T\ dry. Musculoskeletal: Circulation, motion, and sensation intact. Capillary refill < 3 seconds. 23:54 Reassessment: Patient appears in no apparent distress at this time. Patient and/or aa1 family updated on plan of care and expected duration. Pain level reassessed. Patient is alert, oriented x 3, equal unlabored respirations, skin warm/dry/pink. Awaiting CT scan. 12 00:43 Reassessment: Patient appears in no apparent distress at this time. Patient and/or aa1 family updated on plan of care and expected duration. Pain level reassessed. Patient is alert, oriented x 3, equal unlabored respirations, skin warm/dry/pink. Pt back from CT. Medicated with Motrin for headache. 01:34 Reassessment: Patient appears in no apparent distress at this time. Patient and/or aa1 family updated on plan of care and expected duration. Pain level reassessed. Patient is alert, oriented x 3, equal unlabored respirations, skin warm/dry/pink. Awaiting CT results. Pt resting quietly. 01:54 Reassessment: Patient appears in no apparent distress at this time. Patient is alert, aa1 oriented x 3, equal unlabored respirations, skin warm/dry/pink. Discussed d/c \T\ f/u instructions with pt \T\ family; denies questions or concerns at this time Patient denies pain at this time. Patient states feeling better. Vital Signs: 03/06 22:23 BP 151 / 90; Pulse 115; Resp 18; Temp 102.9(O); Pulse Ox 98% on R/A; Weight 82.55 kg; aa1 Height 5 ft. 7 in. (170.18 cm); Pain 5/10; 23:30 BP 129 / 84; Pulse 108; Resp 22; Temp 101.0(O); Pulse Ox 96% on R/A; aa1 12 00:43 BP 109 / 65; Pulse 108; Resp 18; Temp 99.9(O); Pulse Ox 99% on R/A; aa1 01:34 BP 98 / 52; Pulse 103; Resp 16; Pulse Ox 96% on R/A; aa1 03/06 22:23 Body Mass Index 28.50 (82.55 kg, 170.18 cm) aa1 ED Course: 03/06 22:07 Patient arrived in ED. al2 22:11 Barron Garcia PA is PHCP. cp 22:11 Kurt Salvador MD is Attending Physician. cp 22:20 Initial lab(s) drawn, by ED staff, sent to lab. Inserted saline lock: 20 gauge in right aa1 forearm, using aseptic technique. ,using aseptic technique. by Jaylon Quick RN Blood collected. 22:21 Triage completed. aa1 22:23 Arm band placed on right wrist. aa1 22:25 Patient has correct armband on for positive identification. Bed in low position. Call aa1 light in reach. Side rails up X2. Pulse ox on. NIBP on. 22:30 EKG done, by ED staff, reviewed by Kurt Salvador MD. aa1 22:47 Katey Espinoza, EDITH is Primary Nurse. aa1 03/07 00:45 CT completed. Patient tolerated procedure well. Patient moved to CT via stretcher. Patient moved back from CT. 01:54 No provider procedures requiring assistance completed. IV discontinued, intact, aa1 bleeding controlled, No redness/swelling at site. Pressure dressing applied. 05:38 XRAY Chest (1 view) In Process Unspecified. EDMS 05:39 CT Abd/Pelvis - W/Contrast: give oral contrast In Process Unspecified. EDMS Administered Medications: 03/06 22:50 Drug: Zofran 4 mg Route: IVP; Site: right forearm; aa1 23:50 Follow up: Response: No adverse reaction; Nausea is decreased aa1 22:50 Drug: Pepcid 20 mg Route: IVP; Site: right antecubital; aa1 03/07 00:21 Follow up: Response: No adverse reaction; Marked relief of symptoms aa1 03/06 22:50 Drug: NS 0.9% 500 ml Route: IV; Rate: bolus; Site: right forearm; aa1 23:51 Follow up: IV Status: Completed infusion aa1 22:50 Drug: Tylenol 1000 mg Route: PO; aa1 23:50 Follow up: Response: No adverse reaction; Temperature is decreased aa1 23:52 Drug: NS 0.9% 1000 ml Route: IV; Rate: 100 ml/hr; Site: right forearm; aa1 03/07 01:54 Follow up: IV Status: Completed infusion aa1 00:42 Drug: Motrin 800 mg Route: PO; aa1 01:33 Follow up: Response: No adverse reaction; Pain is decreased aa1 01:33 Drug: NS 0.9% 1000 ml Route: IV; Rate: 1 bolus; Site: right forearm; aa1 01:54 Follow up: IV Status: Completed infusion aa1 Outcome: 01:43 Discharge ordered by MD. cp 01:54 Discharged to home via wheelchair, with family. aa1 01:54 Condition: good 01:54 Discharge instructions given to patient, family, Instructed on discharge instructions, follow up and referral plans. medication usage, Demonstrated understanding of instructions, follow-up care, medications, Prescriptions given X 2. 01:55 Patient left the ED. aa1 Signatures: Dispatcher [employer] EDMS Katey Espinoza RN RN aa1 Medardo Brennan Corey, PA PA cp Love, Summer al2
[2018-03-07 02:08] LABS: Urine Blood 2+ (NEG); Urine Glucose NEGATIVE (NEG); Urine Protein 3+ (NEG); Urine Specific Gravity 1.025 (1.005-1.030)
[2018-03-07 02:08] LABS: Urine Specific Gravity 1.025 (1.005-1.030)
--- NOTE | 2018-03-07 06:32 | RAD REPORT ---
EXAM DESCRIPTION: RAD - Chest Single View - 03/06/2018 10:53 pm CLINICAL HISTORY: Cough, fever COMPARISON: October 08, 2017 TECHNIQUE: AP portable chest image was obtained 2224 hours . FINDINGS: Lung volumes are low. No mass or consolidation. Interstitial markings at each base are not clearly different from comparison. Heart and vasculature are normal. No measurable pleural effusion and no pneumothorax. No acute bony abnormality seen. No acute aortic findings suspected. IMPRESSION: Shallow inspiration film felt to be without acute cardiopulmonary finding. No significant change from the comparison.
--- NOTE | 2018-03-07 07:09 | RAD REPORT ---
EXAM DESCRIPTION: CT - Abdomen Pelvis W Contrast - 03/07/2018 3:50 am CLINICAL HISTORY: Left lower quadrant abdominal pain. A preliminary report was provided at the time of the study and reviewed prior to final report. COMPARISON: None. TECHNIQUE: Biphasic, helical CT imaging of the abdomen and pelvis was performed following 100 ml non -ionic IV contrast. Oral contrast was given. All CT scans are performed using dose optimization technique as appropriate and may include automated exposure control or mA/KV adjustment according to patient size. FINDINGS: No suspicious findings in the lung bases. Liver is prominent in size but shows no focal parenchymal process. No capsular nodularity. Spleen and pancreas show no suspicious findings. Gallbladder and biliary tree are also without suspicious findi ng. Symmetric renal function is seen with no hydronephrosis or suspicious renal mass. No dilated bowel loops or bowel wall thickening. No appendicitis findings or other acute GI process. No free air, free fluid or inflammatory stranding. No hernia, mass or bulky lymphadenopathy. The uri nary bladder is without significant finding. No adrenal abnormality. Uterus and ovaries show no suspi cious findings. No suspicious bony findings. IMPRESSION: Contrast enhanced CT abdomen and pelvis showing no significant or suspicious finding.
--- NOTE | 2018-03-07 11:29 | EKG ---
Test Date: 2018-03-06 Test Time: 22:34:28 Oncology Consultant: JAMES MEASUREMENT RESULTS: Intervals: Rate: 115 CO: 138 QRSD: 76 QT: 314 QTc: 434 [place]: P: 31 CO: 138 QRS: 32 T: 40 INTERPRETIVE STATEMENTS: Sinus tachycardia Otherwise normal ECG Compared to ECG 01/08/2017 13:08:52 Sinus rhythm no longer present Electronically Signed On 03-07-18 11:27:46 CHAINSTITCH TUNNEL ELASTIC OPERATOR by Rod Schmitz
== END 2018-03-07 01:55 | disposition home or self-care (01) ==
LOC: ER 21:56
DX: R19.7 Diarrhea, unspecified (principal); F17.210 Nicotine dependence, cigarettes, uncomplicated; I10 Essential (primary) hypertension; E11.9 Type 2 diabetes mellitus without complications; Z88.5 Allergy status to narcotic agent
CPT/HCPCS: 36415; 71045; 74177; 80048; 80076; 81003; 81025; 83690; 84484; 85025; 87804; 93005; 99285; J2405; J7030; Q9967

== ENCOUNTER 2018-06-11 01:21 | Emergency (ER) | payer SELFPAY ==
[2018-06-11 03:33] LABS: Urine Blood 3+ (NEG); Urine Glucose 1+ (NEG); Urine Protein 3+ (NEG); Urine Specific Gravity >1.030 (1.005-1.030); Urine pH 5.5 (5.0-7.0)
[2018-06-11] MEDS ORDERED: KETOROLAC 30 MG/ML INJ ONE (04:00)
[2018-06-11] MEDS ORDERED: ALBUTEROL 2.5 MG/3 ML NEB SOL ONE (04:00)
[2018-06-11] MEDS ORDERED: IPRATROPIUM BROM 0.5MG/2.5ML ONE (04:00)
[2018-06-11] MEDS ORDERED: NA CHLORIDE 0.9% 2,000 ML ONE (04:01)
[2018-06-11] MEDS ORDERED: NA CHLORIDE 0.9% 500 ML ONE (04:01)
[2018-06-11 04:40] LABS: Absolute Lymphocytes (CBC) 2.1 K/uL (0.7-4.9); Absolute Monocytes 0.4 K/uL (0.1-1.3); Absolute Neutrophil 5.6 K/uL (1.8-8.0); Basophils % 0.7 % (0-1.3); Eosinophils % 2.2 % (0-4.4); Hematocrit 31.9 % (36.0-45.0); Lymphocytes % 25.2 % (15.3-44.8); MPV 10.6 fL (7.6-11.3); RBC Red Blood Cell Count 3.87 M/uL (3.86-4.86)
[2018-06-11 04:41] LABS: Protime INR 0.95
[2018-06-11 04:59] LABS: ALT/SGPT 27 U/L (12-78); AST/SGOT 28 U/L (15-37); Albumin 2.9 g/dL (3.4-5.0); Alkaline Phosphatase 72 U/L (45-117); BUN Blood Urea Nitrogen 16 mg/dL (7-18); Bicarbonate 25 mmol/L (21-32); Bilirubin Direct 0.1 mg/dL (0-0.2); Bilirubin Total 0.4 mg/dL (0.2-1.0); Glucose Level 203 mg/dL (74-106); Lipase 136 U/L (73-393); Potassium 4.4 mmol/L (3.5-5.1); Protein, Total 7.2 g/dL (6.4-8.2); Sodium Level 136 mmol/L (136-145); Troponin (Emerg Dept Use Only) < 0.02 ng/mL (0.0-0.045)
[2018-06-11] MEDS ORDERED: CEFTRIAXONE/SWI 1gm 1 GM/10 ML SYR ONE ×2 (05:38→05:43)
--- NOTE | 2018-06-11 05:38 | EDPHYS ---
Physician Documentation [facility] Name: Estelle Ashley Age: 48 yrs Sex: Female : 1970 Arrival Date: 06/11/2018 Time: 01:22 Bed 14 Private MD: ED Physician Joe Gomes HPI: 06/11 07:21 This 48 yrs old Female presents to ER via Ambulatory with complaints of Chest wa Wall Pain, Fever, Congestion. 07:21 The patient or guardian reports chest pain that is located primarily in the substernal wa area. Onset: 1 week(s) ago. The pain does not radiate. Associated signs and symptoms: Pertinent positives: cough, congestion. sore throat and body aches, Pertinent negatives: dizziness, headache. The chest pain is described as aching. Duration: The patient or guardian reports a single episode, that is still ongoing. Modifying factors: The symptoms are alleviated by nothing. the symptoms are aggravated by cough. Severity of pain: At its worst the pain was moderate in the emergency department the pain is unchanged. The patient has not experienced similar symptoms in the past. 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 - Social history:: Smoking status: Patient/guardian denies using tobacco. - Ebola Screening: : No symptoms or risks identified at this time. - Family history:: not pertinent. - Hospitalizations: : No recent hospitalization is reported. ROS: 07:22 Constitutional: Negative for fever, chills, and weight loss, Eyes: Negative for injury, wa pain, redness, and discharge, Neck: Negative for injury, pain, and swelling, Cardiovascular: Negative for chest pain, palpitations, and edema, Abdomen/GI: Negative for abdominal pain, nausea, vomiting, diarrhea, and constipation, Back: Negative for injury and pain, : Negative for injury, bleeding, discharge, and swelling, MS/Extremity: Negative for injury and deformity, Skin: Negative for injury, rash, and discoloration, Neuro: Negative for headache, weakness, numbness, tingling, and seizure, Psych: Negative for depression, anxiety, suicide ideation, homicidal ideation, and hallucinations. 07:22 ENT: Positive for sinus congestion, sore throat, Negative for ear pain. 07:22 Cardiovascular: Positive for chest pain, Negative for edema. 07:22 Respiratory: Positive for cough, Negative for sputum production. 07:25 All other systems are negative. wa Exam: 07:23 Head/Face: Normocephalic, atraumatic. Eyes: Pupils equal round and reactive to light, wa extra-ocular motions intact. Lids and lashes normal. Conjunctiva and sclera are non-icteric and not injected. Cornea within normal limits. Periorbital areas with no swelling, redness, or edema. Neck: Trachea midline, no thyromegaly or masses palpated, and no cervical lymphadenopathy. Supple, full range of motion without nuchal rigidity, or vertebral point tenderness. No Meningismus. Chest/axilla: Normal chest wall appearance and motion. Nontender with no deformity. No lesions are appreciated. Cardiovascular: Regular rate and rhythm with a normal S1 and S2. No gallops, murmurs, or rubs. Normal PMI, no JVD. No pulse deficits. Abdomen/GI: Soft, non-tender, with normal bowel sounds. No distension or tympany. No guarding or rebound. No evidence of tenderness throughout. Back: No spinal tenderness. No costovertebral tenderness. Full range of motion. Skin: Warm, dry with normal turgor. Normal color with no rashes, no lesions, and no evidence of cellulitis. MS/ Extremity: Pulses equal, no cyanosis. Neurovascular intact. Full, normal range of motion. Neuro: Awake and alert, GCS 15, oriented to person, place, time, and situation. Cranial nerves II-XII grossly intact. Motor strength 5/5 in all extremities. Sensory grossly intact. Cerebellar exam normal. Normal gait. Psych: Awake, alert, with orientation to person, place and time. Behavior, mood, and affect are within normal limits. 07:23 Constitutional: The patient appears alert, ill-appearing 07:23 Respiratory: the patient does not display signs of respiratory distress, Respirations: normal, Breath sounds: coarse bilaterally. Vital Signs: 01:37 BP 138 / 73; Pulse 105; Resp 20; Temp 98.7; Pulse Ox 98% on R/A; Weight 81.65 kg; ea Height 5 ft. 7 in. (170.18 cm); Pain 10/10; 03:00 BP 125 / 77; Pulse 92; Resp 19; Pulse Ox 99% ; rr5 04:00 BP 136 / 80; Pulse 100; Resp 20; Pulse Ox 99% ; rr5 05:00 BP 130 / 70; Pulse 95; Resp 17; Pulse Ox 98% ; rr5 06:02 BP 132 / 72; Pulse 99; Resp 17; Pulse Ox 99% ; rr5 01:37 Body Mass Index 28.19 (81.65 kg, 170.18 cm) ea MDM: 02:56 Patient medically screened. tn 07:24 Data reviewed: vital signs, nurses notes, lab test result(s). Test interpretation: by tn ED physician or midlevel provider: flu and strep negative. cardiac enzymes nml. . 03 01:39 Order name: Flu; Complete Time: 03:12 06/11 01:39 Order name: Strep; Complete Time: 03:12 06/11 02:09 Order name: Urine Dipstick--Ancillary (enter results); Complete Time: 03:36 ms 06/11 02:09 Order name: Urine --Ancillary (enter results); Complete Time: 03:36 ms 06/11 02:16 Order name: Throat Culture EDSD 06/11 03:37 Order name: Basic Metabolic Panel; Complete Time: 05:23 tn 06/11 03:37 Order name: Blood Culture Adult (2) tn 06/11 03:37 Order name: CBC with Diff; Complete Time: 05:23 tn 06/11 03:37 Order name: Lactate; Complete Time: 05:23 tn 06/11 03:37 Order name: LFT's; Complete Time: 05:23 tn 06/11 03:37 Order name: Lipase; Complete Time: 05:23 tn 06/11 03:37 Order name: Protime (+inr); Complete Time: 05:23 tn 06/11 03:37 Order name: Troponin (emerg Dept Use Only); Complete Time: 05:23 tn 06/11 03:37 Order name: Urine Microscopic Only tn 06/11 01:39 Order name: Chest Single View XRAY 06/11 03:37 Order name: Accucheck; Complete Time: 04:28 tn 06/11 03:37 Order name: Cardiac monitoring; Complete Time: 03:51 tn 06/11 03:37 Order name: EKG - Nurse/Tech; Complete Time: 03:50 tn 06/11 03:37 Order name: IV Saline Lock - Large Bore; Complete Time: 04:21 tn 06/11 03:37 Order name: Labs collected and sent; Complete Time: 04:21 tn 06/11 03:37 Order name: O2 Per Protocol; Complete Time: 03:50 tn 06/11 03:37 Order name: O2 Sat Monitoring; Complete Time: 03:50 tn 06/11 03:37 Order name: Urine Dipstick-Ancillary (obtain specimen); Complete Time: 03:50 tn Administered Medications: 04:00 Drug: AtroVENT Aerosol 0.5 mg Route: Inhalation; rr5 06:06 Follow up: Response: No adverse reaction rr5 04:05 Drug: Albuterol 2.5 mg Route: Inhalation; rr5 06:06 Follow up: Response: No adverse reaction rr5 04:18 Drug: NS 0.9% (30 ml/kg) 30 ml/kg Route: IV; Rate: bolus; Site: left antecubital; rr5 06:00 Follow up: Response: No adverse reaction; IV Status: Completed infusion; IV Intake: rr5 2449.5ml 04:20 Drug: TORadol 30 mg Route: IVP; Site: left antecubital; rr5 06:00 Follow up: Response: No adverse reaction rr5 05:31 Drug: Rocephin - (cefTRIAXone) 2 grams Route: IVPB; Infused Over: 30 mins; Site: left rr5 antecubital; 06:00 Follow up: IV Status: Completed infusion rr5 Point of Care Testing: Blood Glucose: 04:27 Blood Glucose: 213 mg/dL; rr5 Ranges: Critical Glucose Levels:Adult <50 mg/dl or >400 mg/dl <40 mg/dl or >180 mg/dl Disposition: 06/11/18 05:37 Discharged to Home. Impression: Chest pain, unspecified, Cough. - Condition is Stable. - Discharge Instructions: Nonspecific Chest Pain, [id number], Cough, Adult, [id number]. - Prescriptions for Albuterol Sulfate 2.5 mg /3 mL (0.083 %) Inhalation Solution for Nebulization - inhale 1 unit by NEBULIZATION route every 8 hours As needed; 1 box. Zithromax Z- Ricardo 250 mg Oral Tablet - take 1 tablet by ORAL route as directed for 5 days Day 1 - take two (2) tablets one time. Day 2, 3, 4 , 5 take one (1) tablet once daily.; 6 tablet. - Medication Reconciliation Form, Thank You Letter, Antibiotic Education, Prescription Opioid Use form. - Follow up: Private Physician; When: 2 - 3 days; Reason: Re-evaluation by your physician. - Problem is new. - Symptoms have improved. - Notes: take medication as prescribed. follow up with your doctor within 2 days for reassessment Signatures: Dispatcher [employer] Natalie Morrell RN RN ea Appiah, William, MD MD wa Roque, Raymond, RN RN rr5 Corrections: (The following items were deleted from the chart) 06:04 05:37 06/11/2018 05:37 Discharged to Home. Impression: Chest pain, unspecified; Cough. rr5 Condition is Stable. Forms are Medication Reconciliation Form, Thank You Letter, Antibiotic Education, Prescription Opioid Use. Follow up: Private Physician; When: 2 - 3 days; Reason: Re-evaluation by your physician. Problem is new. Symptoms have improved. kendy
--- NOTE | 2018-06-11 05:38 | ER ---
Nurse's Notes [facility] Name: Estelle Ashley Age: 48 yrs Sex: Female : 1970 Arrival Date: 06/11/2018 Time: 01:22 Bed 14 Private MD: Diagnosis: Chest pain, unspecified;Cough Presentation: 06/11 01:33 Presenting complaint: Patient states: Pt reports congestion, back pain, and chest pain ea with productive cough, pt reports she has been coughing for the past month. Reports grandchildren have flu and RSV. Pt reports fever that started two days ago. Transition of care: patient was not received from another setting of care. Onset of symptoms was June 11, 2018. Risk Assessment: Do you want to hurt yourself or someone else? Patient reports no desire to harm self or others. Initial Sepsis Screen: Does the patient meet any 2 criteria? HR > 90 bpm. Does the patient have a suspected source of infection? Yes: Productive cough/pneumonia. Care prior to arrival: Demarcus figueroa. 01:33 Method Of Arrival: Ambulatory ea 01:33 Acuity: MOHIT 3 ea Triage Assessment: 01:42 General: Appears uncomfortable, Behavior is calm, cooperative, appropriate for age. ea Pain: Complains of pain in body aches Pain currently is 10 out of 10 on a pain scale. Quality of pain is described as aching. Neuro: Level of Consciousness is awake, alert, obeys commands, Oriented to person, place, time, situation. Cardiovascular: Patient's skin is warm and dry. Respiratory: Airway is patent Respiratory effort is even, unlabored, Respiratory pattern is regular, symmetrical. 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 - Social history:: Smoking status: Patient/guardian denies using tobacco. - Ebola Screening: : No symptoms or risks identified at this time. - Family history:: not pertinent. - Hospitalizations: : No recent hospitalization is reported. Screenin:00 Abuse screen: Denies threats or abuse. Denies injuries from another. Nutritional rr5 screening: No deficits noted. Tuberculosis screening: No symptoms or risk factors identified. Fall Risk None identified. Assessment: 03:00 General: Appears in no apparent distress. uncomfortable, Behavior is calm, cooperative, rr5 appropriate for age. 03:00 Pain: Complains of pain in chest Pain radiates to back Pain currently is 10 out of 10 rr5 on a pain scale. Quality of pain is described as aching, Pain began gradually, Is intermittent. Neuro: Level of Consciousness is awake, alert, obeys commands, Oriented to person, place, time, situation, Appropriate for age. Cardiovascular: Reports chest wall pain Capillary refill < 3 seconds Patient's skin is warm and dry. Respiratory: Reports cough that is productive, Airway is patent Respiratory effort is even, unlabored, Respiratory pattern is regular, symmetrical. GI: No signs and/or symptoms were reported involving the gastrointestinal system. : No signs and/or symptoms were reported regarding the genitourinary system. EENT: No signs and/or symptoms were reported regarding the EENT system. Derm: Skin is intact, Skin temperature is warm. Musculoskeletal: Reports pain in back. 04:10 Reassessment: Patient appears in no apparent distress at this time. No changes from rr5 previously documented assessment. blood specimen sent. 05:00 Reassessment: Patient appears in no apparent distress at this time. Patient is alert, rr5 oriented x 3, equal unlabored respirations, skin warm/dry/pink. awaiting for review. 06:00 Reassessment: Patient appears in no apparent distress at this time. Patient is alert, rr5 oriented x 3, equal unlabored respirations, skin warm/dry/pink. discharge instruction given and explained without complaints made. Vital Signs: 01:37 BP 138 / 73; Pulse 105; Resp 20; Temp 98.7; Pulse Ox 98% on R/A; Weight 81.65 kg; ea Height 5 ft. 7 in. (170.18 cm); Pain 01/09; 03:00 BP 125 / 77; Pulse 92; Resp 19; Pulse Ox 99% ; rr5 04:00 BP 136 / 80; Pulse 100; Resp 20; Pulse Ox 99% ; rr5 05:00 BP 130 / 70; Pulse 95; Resp 17; Pulse Ox 98% ; rr5 06:02 BP 132 / 72; Pulse 99; Resp 17; Pulse Ox 99% ; rr5 01:37 Body Mass Index 28.19 (81.65 kg, 170.18 cm) ea ED Course: 01:22 Patient arrived in ED. am2 01:37 Triage completed. ea 02:38 Vasile Little, RN is Primary Nurse. rr5 02:46 X-ray completed. Portable x-ray completed in exam room. Patient tolerated procedure kw well. 02:47 Chest Single View XRAY In Process Unspecified. EDMS 02:56 Joe Gomes MD is Attending Physician. wa 03:00 Patient has correct armband on for positive identification. Bed in low position. Call rr5 light in reach. Side rails up X2. desk monitor on. Pulse ox on. NIBP on. 03:00 Arm band placed on. rr5 03:00 No provider procedures requiring assistance completed. Patient maintains SpO2 rr5 saturation greater than 95% on room air. 04:10 Inserted saline lock: 20 gauge in left antecubital area, using aseptic technique. rr5 ,using aseptic technique. inserted by music sound light technician jamil Blood collected. 06:04 IV discontinued, intact, bleeding controlled, No redness/swelling at site. Pressure rr5 dressing applied. Administered Medications: 04:00 Drug: AtroVENT Aerosol 0.5 mg Route: Inhalation; rr5 06:06 Follow up: Response: No adverse reaction rr5 04:05 Drug: Albuterol 2.5 mg Route: Inhalation; rr5 06:06 Follow up: Response: No adverse reaction rr5 04:18 Drug: NS 0.9% (30 ml/kg) 30 ml/kg Route: IV; Rate: bolus; Site: left antecubital; rr5 06:00 Follow up: Response: No adverse reaction; IV Status: Completed infusion; IV Intake: rr5 2449.5ml 04:20 Drug: TORadol 30 mg Route: IVP; Site: left antecubital; rr5 06:00 Follow up: Response: No adverse reaction rr5 05:31 Drug: Rocephin - (cefTRIAXone) 2 grams Route: IVPB; Infused Over: 30 mins; Site: left rr5 antecubital; 06:00 Follow up: IV Status: Completed infusion rr5 Point of Care Testing: Blood Glucose: 04:27 Blood Glucose: 213 mg/dL; rr5 Ranges: Intake: 06:00 IV: 2450ml; Total: 2450ml. rr5 Outcome: 05:37 Discharge ordered by MD. larry 06:04 Discharged to home ambulatory, with family. rr5 06:04 Condition: stable 06:04 Discharge instructions given to patient, family, Instructed on discharge instructions, follow up and referral plans. medication usage, Demonstrated understanding of instructions, follow-up care, medications, Prescriptions given X 2. 06:04 Patient left the ED. rr5 Signatures: Dispatcher [employer] EDMS Luisana Peoples Amanda am2 Natalie Javed, Joe Gutierrez RN, ea, MD MD wa Roque, Raymond RN RN rr5 Corrections: (The following items were deleted from the chart) 04:22 04:10 Inserted saline lock: 20 gauge in left antecubital area, using aseptic technique. rr5 Blood collected. rr5
[2018-06-11 06:08] LABS: Urine Bacteria <20 /HPF (<20); Urine Culture Reflex Order REFLEXED
--- NOTE | 2018-06-11 09:20 | RAD REPORT ---
EXAM DESCRIPTION: RAD - Chest Single View - 06/11/2018 2:46 am CLINICAL HISTORY: Chest pain, productive cough, back pain COMPARISON: March 2018 TECHNIQUE: AP portable chest image was obtained 0244 hours . FINDINGS: Lung volumes are low. Medial right base opacification is present partially obscuring the r ight heart border. This is a change from comparison. No failure or volume overload. Heart and vasculature are normal. No measurable pleural effusion and no pneumothorax. No acute bony abnormality seen. No acute aortic findings suspected. IMPRESSION: Mild or early right lung base pneumonia.
--- NOTE | 2018-06-13 10:27 | EKG ---
Test Date: 2018-06-11 Test Time: 03:12:04 Molder Meat: RR MEASUREMENT RESULTS: Intervals: Rate: 95 NE: 144 QRSD: 76 QT: 326 QTc: 409 [place]: P: 57 NE: 144 QRS: 55 T: 49 INTERPRETIVE STATEMENTS: Normal sinus rhythm Normal ECG Compared to ECG 03/06/2018 22:34:28 Sinus tachycardia no longer present Electronically Signed On 06-11-18 12:40:18 CDT by Jack Cobos
== END 2018-06-11 06:04 | disposition home or self-care (01) ==
LOC: ER 01:21
DX: R07.9 Chest pain, unspecified (principal); R05 Cough; I10 Essential (primary) hypertension; E11.40 Type 2 diabetes mellitus with diabetic neuropathy, unspecified; Z79.84 Long term (current) use of oral hypoglycemic drugs; Z88.5 Allergy status to narcotic agent
CPT/HCPCS: 36415; 71045; 80048; 80076; 81003; 81015; 81025; 82962; 83605; 83690; 84484; 85025; 85610; 87040; 87070; 87081; 87086; 87088; 87804; 93005; 96365; 96375; 99285; J0696; J7030

== ENCOUNTER 2018-12-26 18:46 | Emergency (ER) | payer SELFPAY ==
[2018-12-27 00:02] LABS: Protime INR 0.89
[2018-12-27 00:03] LABS: Absolute Lymphocytes (CBC) 4.8 K/uL (0.7-4.9); Basophils % 0.8 % (0-1.3); Hematocrit 29.3 % (36.0-45.0); Lymphocytes % 40.2 % (15.3-44.8); MPV 10.5 fL (7.6-11.3); RBC Red Blood Cell Count 3.48 M/uL (3.86-4.86)
[2018-12-27 00:05] LABS: Urine Blood 2+ (NEG); Urine Glucose 1+ (NEG); Urine Specific Gravity >1.030 (1.005-1.030)
[2018-12-27 00:06] LABS: Urine Protein 2+ (NEG)
[2018-12-27] MEDS ORDERED: NA CHLORIDE 0.9% 1,000 ML ONE (00:07)
[2018-12-27] MEDS ORDERED: NA CHLORIDE 0.9% 500 ML ONE (00:08)
[2018-12-27 00:15] LABS: ALT/SGPT 13 U/L (12-78); AST/SGOT 10 U/L (15-37); Alkaline Phosphatase 60 U/L (45-117); BUN Blood Urea Nitrogen 17 mg/dL (7-18); Bicarbonate 26 mmol/L (21-32); Bilirubin Direct 0.1 mg/dL (0-0.2); Bilirubin Total 0.3 mg/dL (0.2-1.0); Glucose Level 142 mg/dL (74-106); Lipase 179 U/L (73-393); Magnesium 1.9 mg/dL (1.8-2.4); NT PRO-BNP 270 pg/mL (<125); Protein, Total 6.6 g/dL (6.4-8.2); Sodium Level 139 mmol/L (136-145); Troponin (Emerg Dept Use Only) < 0.02 ng/mL (0.0-0.045)
--- NOTE | 2018-12-27 00:58 | ER ---
Nurse's Notes [facility] Name: Estelle Ashley Age: 48 yrs Sex: Female : 1970 Arrival Date: 12/26/2018 Time: 18:48 Bed 28 Private MD: Diagnosis: Nausea;Cough;Dizziness and giddiness;Type 2 diabetes mellitus Presentation: 12/26 19:21 Presenting complaint: Patient states: Marilyn just felt bad for a couple days, today Marilyn sg had some episodes of sweating heavily, reports feeling dizzy as well, denies N/V/D at this time. Transition of care: patient was not received from another setting of care. Onset of symptoms was December 26, 2018. Risk Assessment: Do you want to hurt yourself or someone else? Patient reports no desire to harm self or others. Initial Sepsis Screen: Does the patient meet any 2 criteria? No. Patient's initial sepsis screen is negative. Does the patient have a suspected source of infection? No. Patient's initial sepsis screen is negative. Care prior to arrival: None. 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 - Social history:: Smoking status: Patient/guardian denies using tobacco. - Ebola Screening: : Patient negative for fever greater than or equal to 101.5 degrees Fahrenheit, and additional compatible Ebola Virus Disease symptoms Patient denies exposure to infectious person Patient denies travel to an Ebola-affected area in the 21 days before illness onset No symptoms or risks identified at this time. Screenin:00 Abuse screen: Denies threats or abuse. Nutritional screening: No deficits noted. tr5 Tuberculosis screening: No symptoms or risk factors identified. Fall Risk None identified. Assessment: 20:00 Neuro: Level of Consciousness is awake, alert, obeys commands. tr5 20:00 Neuro: Reports dizziness, since Two days ago. Cardiovascular: Heart tones present tr5 Capillary refill < 3 seconds Pulses are all present. Edema is absent. Respiratory: Airway is patent Respiratory effort is even, unlabored, Respiratory pattern is regular, symmetrical. GI: Reports intolerance of food, nausea. : No signs and/or symptoms were reported regarding the genitourinary system. EENT: No signs and/or symptoms were reported regarding the EENT system. Derm: No signs and/or symptoms reported regarding the dermatologic system. Skin is intact, Skin is dry, Skin is normal, Skin temperature is warm. Musculoskeletal: Capillary refill < 3 seconds, Range of motion: intact in all extremities. 20:00 Pain: Denies pain. tr5 21:00 Reassessment: Patient appears in no apparent distress at this time. Patient and/or tr5 family updated on plan of care and expected duration. Pain level reassessed. Patient is alert, oriented x 3, equal unlabored respirations, skin warm/dry/pink. 22:45 Reassessment: pt refused CT until she has results of UPT per cardiothoracic anesthesia technician. ak1 23:30 General: Appears in no apparent distress. Behavior is calm, cooperative. tr5 23:30 Reassessment: Patient appears in no apparent distress at this time. No changes from tr5 previously documented assessment. Patient and/or family updated on plan of care and expected duration. Pain level reassessed. Patient is alert, oriented x 3, equal unlabored respirations, skin warm/dry/pink. 12/27 00:39 Reassessment: Patient appears in no apparent distress at this time. Patient and/or tr5 family updated on plan of care and expected duration. Pain level reassessed. Patient is alert, oriented x 3, equal unlabored respirations, skin warm/dry/pink. Vital Signs: 12/26 19:22 BP 111 / 72; Pulse 94; Resp 16; Temp 97.8; Pulse Ox 99% on R/A; Weight 78.47 kg (M); sg Height 5 ft. 7 in. (170.18 cm); Pain 6/10; 21:00 BP 155 / 94; Pulse 90; Resp 16; Pulse Ox 100% ; tr5 22:00 BP 138 / 85; Pulse 90; Resp 16; Pulse Ox 98% on R/A; tr5 23:00 BP 135 / 81; Pulse 87; Resp 17; Pulse Ox 99% ; tr5 12/27 00:39 BP 123 / 71; Pulse 87; Resp 18; Pulse Ox 99% on R/A; tr5 01:00 BP 121 / 75 Supine; Pulse 73; Resp 16; Pulse Ox 100% ; tr5 01:05 BP 123 / 76 Sitting; Pulse 78; tr5 01:10 BP 120 / 78 Standing; Pulse 86; tr5 12/26 19:22 Body Mass Index 27.10 (78.47 kg, 170.18 cm) ED Course: 12/26 18:48 Patient arrived in ED. as 19:21 Arm band placed on. sg 19:22 Triage completed. 20:10 Barron Albert MD is Attending Physician. andrew 20:16 Valentino Bhat, EDITH is Primary Nurse. tr5 21:00 Bed in low position. Call light in reach. Side rails up X 1. tr5 22:40 Radiology exam delayed due to PT WANTS UPT DONE PRIOR TO EXAM DUE TO CHANCE SHE COULD vm2 BE . 23:00 Inserted saline lock: 20 gauge in right antecubital area, using aseptic technique. tr5 23:05 Initial lab(s) drawn, by ma, sent to lab. Urine collected: clean catch specimen, clear. tr5 23:58 CT Head Brain wo Cont In Process Unspecified. EDMS 12/27 00:27 EKG done, by ED staff. tr5 01:29 XRAY Chest (1 view) In Process Unspecified. EDMS 01:58 No provider procedures requiring assistance completed. IV discontinued. tr5 Administered Medications: 00:15 Drug: NS 0.9% 500 ml Route: IV; Rate: bolus; Site: right antecubital; tr5 00:26 Drug: NS 0.9% 1000 ml Route: IV; Rate: 125 ml/hr; Site: right antecubital; tr5 21:47 Follow up: IV Status: Completed infusion tr5 Outcome: 00:30 Discharge ordered by . andrew 01:58 Discharged to home ambulatory. tr5 01:58 Condition: stable 01:58 Discharge instructions given to patient, Instructed on discharge instructions, follow up and referral plans. medication usage, Demonstrated understanding of instructions, follow-up care, medications, Prescriptions given X 2. 02:03 Patient left the ED. tr5 Signatures: Dispatcher [employer] EDKY Chip Barnhart RN RN sg Anderson, Corey, MD MD cha Martinez, Amelia as Krenek, Amber, RN RN [email or web address] Marianne Robertson vm2 Valentino Bhat RN RN tr5 Corrections: (The following items were deleted from the chart) 12/26 21:53 19:30 General: Appears in no apparent distress. Behavior is calm, cooperative, tr5 tr5 12/27 00:35 12/26 19:30 Pain: Denies pain. tr5 tr5 12/27 00:40 12/26 20:00 General: Appears in no apparent distress. Behavior is calm, cooperative, tr5tr5
--- NOTE | 2018-12-27 01:02 | EDPHYS ---
Physician Documentation [facility] Name: Estelle Ashley Age: 48 yrs Sex: Female : 1970 Arrival Date: 12/26/2018 Time: 18:48 Bed 28 Private MD: ED Physician Barron Albert HPI: 12/26 22:22 This 48 yrs old Female presents to ER via Ambulatory with complaints of andrew Nausea, Cough. 22:22 The patient presents to the emergency department with nausea, vomiting. Onset: The andrew symptoms/episode began/occurred 2 day(s) ago. Possible causes: unknown. Associated signs and symptoms: The patient has no apparent associated signs or symptoms. 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 - Social history:: Smoking status: Patient/guardian denies using tobacco. - Ebola Screening: : Patient negative for fever greater than or equal to 101.5 degrees Fahrenheit, and additional compatible Ebola Virus Disease symptoms Patient denies exposure to infectious person Patient denies travel to an Ebola-affected area in the 21 days before illness onset No symptoms or risks identified at this time. ROS: 22:23 Constitutional: Negative for fever, chills, and weight loss, Eyes: Negative for injury, andrew pain, redness, and discharge, ENT: Negative for injury, pain, and discharge, Neck: Negative for injury, pain, and swelling, Cardiovascular: Negative for chest pain, palpitations, and edema, Respiratory: Negative for shortness of breath, cough, wheezing, and pleuritic chest pain, Abdomen/GI: Negative for abdominal pain, nausea, vomiting, diarrhea, and constipation, Back: Negative for injury and pain, : Negative for injury, bleeding, discharge, and swelling, MS/Extremity: Negative for injury and deformity, Skin: Negative for injury, rash, and discoloration, Psych: Negative for depression, anxiety, suicide ideation, homicidal ideation, and hallucinations, Allergy/Immunology: Negative for hives, rash, and allergies, Endocrine: Negative for neck swelling, polydipsia, polyuria, polyphagia, and marked weight changes, Hematologic/Lymphatic: Negative for swollen nodes, abnormal bleeding, and unusual bruising. 22:23 Neuro: Positive for near syncope, weakness. Exam: 22:23 Abdomen/GI: Inspection: abdomen appears normal, bruising. andrew 22:23 Constitutional: This is a well developed, well nourished patient who is awake, alert, and in no acute distress. Head/Face: Normocephalic, atraumatic. Eyes: Pupils equal round and reactive to light, extra-ocular motions intact. Lids and lashes normal. Conjunctiva and sclera are non-icteric and not injected. Cornea within normal limits. Periorbital areas with no swelling, redness, or edema. ENT: Nares patent. No nasal discharge, no septal abnormalities noted. Tympanic membranes are normal and external auditory canals are clear. Oropharynx with no redness, swelling, or masses, exudates, or evidence of obstruction, uvula midline. Mucous membranes moist. Neck: Trachea midline, no thyromegaly or masses palpated, and no cervical lymphadenopathy. Supple, full range of motion without nuchal rigidity, or vertebral point tenderness. No Meningismus. Chest/axilla: Normal chest wall appearance and motion. Nontender with no deformity. No lesions are appreciated. Cardiovascular: Regular rate and rhythm with a normal S1 and S2. No gallops, murmurs, or rubs. Normal PMI, no JVD. No pulse deficits. Respiratory: Lungs have equal breath sounds bilaterally, clear to auscultation and percussion. No rales, rhonchi or wheezes noted. No increased work of breathing, no retractions or nasal flaring. Abdomen/GI: Soft, non-tender, with normal bowel sounds. No distension or tympany. No guarding or rebound. No evidence of tenderness throughout. Back: No spinal tenderness. No costovertebral tenderness. Full range of motion. Skin: Warm, dry with normal turgor. Normal color with no rashes, no lesions, and no evidence of cellulitis. MS/ Extremity: Pulses equal, no cyanosis. Neurovascular intact. Full, normal range of motion. Psych: Awake, alert, with orientation to person, place and time. Behavior, mood, and affect are within normal limits. 22:23 Neuro: Orientation: is normal, appropriate for stated age, no acute changes, Mentation: is normal, Memory: is normal, appropriate for stated age, no acute changes, Cranial nerves: grossly normal, is grossly normal based on the patient's age, Cerebellar function: is grossly normal, is grossly normal based on the patient's age, no acute changes, Motor: moves all fours, Gait: not tested. Vital Signs: 19:22 BP 111 / 72; Pulse 94; Resp 16; Temp 97.8; Pulse Ox 99% on R/A; Weight 78.47 kg (M); sg Height 5 ft. 7 in. (170.18 cm); Pain 6/10; 21:00 BP 155 / 94; Pulse 90; Resp 16; Pulse Ox 100% ; tr5 22:00 BP 138 / 85; Pulse 90; Resp 16; Pulse Ox 98% on R/A; tr5 23:00 BP 135 / 81; Pulse 87; Resp 17; Pulse Ox 99% ; tr5 12/27 00:39 BP 123 / 71; Pulse 87; Resp 18; Pulse Ox 99% on R/A; tr5 01:00 BP 121 / 75 Supine; Pulse 73; Resp 16; Pulse Ox 100% ; tr5 01:05 BP 123 / 76 Sitting; Pulse 78; tr5 01:10 BP 120 / 78 Standing; Pulse 86; tr5 12/26 19:22 Body Mass Index 27.10 (78.47 kg, 170.18 cm) sg MDM: 12/26 20:10 Patient medically screened. [facility] 22:46 Data reviewed: vital signs, nurses notes, lab test result(s), EKG, radiologic studies, [facility] CT scan, ultrasound. 12/26 22: Order name: Basic Metabolic Panel; Complete Time: 00:27 [facility] 12/26 22:26 Order name: CBC with Diff; Complete Time: 00: [facility] 12/26 22:26 Order name: LFT's; Complete Time: 00: [facility] 12/26 22: Order name: Magnesium; Complete Time: 00: [facility] 12/26 21: Order name: NT PRO-BNP; Complete Time: 00: [facility] 12/26 22: Order name: PT-INR; Complete Time: 00: [facility] 12/26 22: Order name: Troponin (emerg Dept Use Only); Complete Time: 00: [facility] 12/26 22:26 Order name: XRAY Chest (1 view) [facility] 12/26 22:26 Order name: Lipase; Complete Time: 00:27 [facility] 12/26 22:26 Order name: CT Head Brain wo Cont [facility] 12/26 23:31 Order name: Urine Dipstick--Ancillary (enter results); Complete Time: 00:27 [facility] 12/26 23:31 Order name: Urine --Ancillary (enter results); Complete Time: 00:27 [facility] 12/26 22:26 Order name: EKG; Complete Time: 22:28 [facility] 12/26 22:26 Order name: Cardiac monitoring; Complete Time: 23:29 [facility] 12/26 22:26 Order name: EKG - Nurse/Tech; Complete Time: 00:25 [facility] 12/26 22: Order name: IV Saline Lock; Complete Time: 23:30 [facility] 12/26 22: Order name: Labs collected and sent; Complete Time: 23:30 [facility] 12/26 22:26 Order name: O2 Per Protocol; Complete Time: 23:30 [facility] 12/26 22:26 Order name: O2 Sat Monitoring; Complete Time: 23:30 [facility] 12/26 22:26 Order name: Urine Dipstick-Ancillary (obtain specimen); Complete Time: 23:41 [facility] 12/26 22:26 Order name: Urine Test (obtain specimen); Complete Time: 23:41 [facility] 12/27 00:28 Order name: Orthostatics; Complete Time: 01:16 [facility] Administered Medications: 12/27 00:15 Drug: NS 0.9% 500 ml Route: IV; Rate: bolus; Site: right antecubital; tr5 00:26 Drug: NS 0.9% 1000 ml Route: IV; Rate: 125 ml/hr; Site: right antecubital; tr5 21:47 Follow up: IV Status: Completed infusion tr5 Disposition: 12/27/18 00:30 Discharged to Home. Impression: Nausea, Cough, Dizziness and giddiness, Type 2 diabetes mellitus. - Condition is Stable. - Discharge Instructions: Type 2 Diabetes Mellitus, Diagnosis, Adult, Dizziness, Nausea, Adult, Near-Syncope, Cough, Adult, [id number], Aspirin and Your Heart, Cough, Adult, Type 2 Diabetes Mellitus, Diagnosis, Adult, [id number], Dizziness, [id number]. - Prescriptions for Zofran 4 mg Oral Tablet - take 1 tablet by ORAL route every 12 hours As needed; 14 tablet. Zithromax Z- Ricardo 250 mg Oral Tablet - take 1 tablet by ORAL route as directed for 5 days Day 1 - take two (2) tablets one time. Day 2, 3, 4 , 5 take one (1) tablet once daily.; 6 tablet. - Medication Reconciliation Form, Thank You Letter, Antibiotic Education, Prescription Opioid Use, Work release form form. - Follow up: Private Physician; When: 2 - 3 days; Reason: Recheck today's complaints, Continuance of care, Re-evaluation by your physician. - Problem is new. - Symptoms have improved. Signatures: Dispatcher [employer] EDMS Chip Barnhart RN RN sg Anderson, Corey, MD MD cha Rodriguez, Tommie, RN RN tr5 Corrections: (The following items were deleted from the chart) 00:30 00:30 12/27/2018 00:30 Discharged to Home. Impression: Nausea; Cough; Dizziness and andrew giddiness. Condition is Stable. Forms are Medication Reconciliation Form, Thank You Letter, Antibiotic Education, Prescription Opioid Use. Follow up: Private Physician; When: 2 - 3 days; Reason: Recheck today's complaints, Continuance of care, Re-evaluation by your physician. Problem is new. Symptoms have improved. andrew 02:03 00:30 12/27/2018 00:30 Discharged to Home. Impression: Nausea; Cough; Dizziness and tr5 giddiness; Type 2 diabetes mellitus. Condition is Stable. Forms are Medication Reconciliation Form, Thank You Letter, Antibiotic Education, Prescription Opioid Use. Follow up: Private Physician; When: 2 - 3 days; Reason: Recheck today's complaints, Continuance of care, Re-evaluation by your physician. Problem is new. Symptoms have improved. andrew
--- NOTE | 2018-12-27 07:55 | RAD REPORT ---
EXAM DESCRIPTION: [place] Single View12/27/2018 12:02 am CLINICAL HISTORY: Cough COMPARISON: May 2018 FINDINGS: The lungs appear clear of acute infiltrate. The heart is normal size IMPRESSION: No acute abnormalities displayed
--- NOTE | 2018-12-27 08:37 | EKG ---
Test Date: 2018-12-27 Test Time: 00:24:32 Service Member: TR MEASUREMENT RESULTS: Intervals: Rate: 75 AL: 146 QRSD: 82 QT: 386 QTc: 431 [place]: P: 48 AL: 146 QRS: 54 T: 15 INTERPRETIVE STATEMENTS: Normal sinus rhythm Normal ECG Compared to ECG 06/11/2018 03:12:04 No significant changes Electronically Signed On 12-27-18 08:36:21 CDT by Jack Cobos
--- NOTE | 2018-12-27 10:56 | RAD REPORT ---
EXAM DESCRIPTION: CT - Head Brain Wo Cont - 12/27/2018 2:00 am CLINICAL HISTORY: The patient is 48 years old and is Female; DIZZINESS TECHNIQUE: Axial computed tomography images of the head/brain without intravenous contrast. Sagitt al and coronal reformatted images were created and reviewed. This CT exam was performed using one o r more of the following dose reduction techniques: automated exposure control, adjustment of the mA and/or kV according to patient size, and/or use of iterative reconstruction technique. COMPARISON: No relevant prior studies available. FINDINGS: BRAIN: Unremarkable. The hare-white matter differentiation is preserved . No hemorrhag e. No significant white matter disease. No edema. No extra-axial fluid collections. VENTRICLES: Unremarkable. No ventriculomegaly. BONES/JOINTS: No acute fracture. SOFT TISSUES: Unremarkable. SINUSES: Unremarkable as visualized. No acute sinusitis. MASTOID AIR CELLS: Unremarkable as visualized. No mastoid effusion. ORBITS: Unremarkable as visualized. IMPRESSION: No acute intracranial findings. Electronically signed by: Keily Cam MD 12/27/2018 12:03 AM CDT Due to temporary technical issues with the PACS/Fluency reporting system, reports are being signed by the in house radiologist as a courtesy to ensure prompt reporting. The interpreting radiologist is f ully responsible for the content of the report.
== END 2018-12-27 02:03 | disposition home or self-care (01) ==
LOC: ER 18:46
DX: R11.0 Nausea (principal); R05 Cough; R42 Dizziness and giddiness; E11.9 Type 2 diabetes mellitus without complications; Z88.6 Allergy status to analgesic agent
CPT/HCPCS: 36415; 70450; 71045; 80048; 80076; 81003; 81025; 83690; 83735; 83880; 84484; 85025; 85610; 93005; 96360; 96361; 99284; J7030

== ENCOUNTER 2019-04-07 11:37 | Emergency (ER) | payer SELFPAY ==
[2019-04-07] MEDS ORDERED: ONDANSETRON 4 MG/2 ML VIAL ONE (12:14)
[2019-04-07] MEDS ORDERED: NA CHLORIDE 0.9% 1,000 ML ONE (12:14)
[2019-04-07] MEDS ORDERED: MECLIZINE HCL 12.5 MG TAB ONE (12:14)
[2019-04-07 12:27] LABS: Absolute Lymphocytes (CBC) 2.6 K/uL (0.7-4.9); Basophils % 1.3 % (0-1.3); Hematocrit 35.4 % (36.0-45.0); Lymphocytes % 27.7 % (15.3-44.8); MPV 10.4 fL (7.6-11.3)
[2019-04-07 12:30] LABS: Protime INR 0.9
--- NOTE | 2019-04-07 12:31 | RAD REPORT ---
EXAM DESCRIPTION: CT - Head Brain Wo Cont - 04/07/2019 12:22 pm CLINICAL HISTORY: DIZZINESS Headache, drowsiness COMPARISON: Head Brain Wo Cont dated 12/26/2018; Head Brain Wo Cont dated 01/08/2017 TECHNIQUE: All CT scans are performed using dose optimization technique as appropriate and may inclu de automated exposure control or mA/KV adjustment according to patient size. FINDINGS: No intracranial hemorrhage, hydrocephalus or extra-axial fluid collection.No areas of brai n edema or evidence of midline shift. The paranasal sinuses and mastoids are clear. The calvarium is intact. IMPRESSION: No acute intracranial abnormality.
[2019-04-07 12:45] LABS: ALT/SGPT 16 U/L (12-78); AST/SGOT 10 U/L (15-37); Alkaline Phosphatase 55 U/L (45-117); BUN Blood Urea Nitrogen 17 mg/dL (7-18); Bicarbonate 30 mmol/L (21-32); Bilirubin Direct < 0.1 mg/dL (0-0.2); Bilirubin Total 0.5 mg/dL (0.2-1.0); Glucose Level 262 mg/dL (74-106); Magnesium 1.9 mg/dL (1.8-2.4); NT PRO-BNP 60 pg/mL (<125); Potassium 4.3 mmol/L (3.5-5.1); Sodium Level 141 mmol/L (136-145); Troponin (Emerg Dept Use Only) < 0.02 ng/mL (0.0-0.045)
--- NOTE | 2019-04-07 14:50 | EKG ---
Test Date: 2019-04-07 Test Time: 13:06:36 Napper Fixer: JAIDEN MEASUREMENT RESULTS: Intervals: Rate: 85 FL: 146 QRSD: 86 QT: 362 QTc: 430 [place]: P: 59 FL: 146 QRS: 60 T: 54 INTERPRETIVE STATEMENTS: Normal sinus rhythm Normal ECG Compared to ECG 12/27/2018 00:24:32 no significant change from previous ECG Electronically Signed On 04-07-19 14:50:28 CLAIMS PROCESSOR by Jack Cobos
--- NOTE | 2019-04-07 15:06 | RAD REPORT ---
EXAM DESCRIPTION: USCarotid Artery Bilateral04/07/2019 2:46 pm CLINICAL HISTORY: Syncope COMPARISON: None FINDINGS: The velocity of the right internal carotid artery equals 98 cm/sec. The right ICA/CCA rati o 1.4 The velocity of the left internal carotid artery equals 115 cm/sec. The left ICA/CCA ratio 1.1 Plaque is not visualized within arteries The vertebral arteries demonstrate antegrade flow IMPRESSION: Unremarkable exam NASCET criteria used. Mild 0-49% stenosis Moderate 50-69% stenosis Severe 70-99% stenosis
--- NOTE | 2019-04-07 15:43 | RAD REPORT ---
EXAM DESCRIPTION: MRI - Brain Wo Cont - 04/07/2019 3:34 pm CLINICAL HISTORY: Dizziness COMPARISON: April 03, [address] TECHNIQUE: Axial, sagittal, and coronal magnetic images of the brain were obtained. Contrast was not requested FINDINGS: No abnormal signal is present within the brain. Diffusion-weighted/ADC mapping does not reveal evidence of acute infarction. The ventricles are normal caliber. An extra-axial fluid collection is not present Mildly prominent adenoidal tissue The sinuses and mastoids are clear. IMPRESSION: Mildly prominent adenoidal tissue. Otherwise unremarkable brain MRI
--- NOTE | 2019-04-07 16:37 | ER ---
Nurse's Notes [facility] Name: Estelle Ashley Age: 49 yrs Sex: Female : 1970 Arrival Date: 04/07/2019 Time: 11:39 Bed 19 Private MD: Diagnosis: Vertigo ;Vomiting Presentation: 04/07 11:41 Presenting complaint: Patient states: i am puking since last night, and my stomach tw2 hurts, i am weak and i cant stand up because of the pain, and i have a major headache, +V/N. Transition of care: patient was not received from another setting of care. Onset of symptoms was April 07, 2019. Risk Assessment: Do you want to hurt yourself or someone else? Patient reports no desire to harm self or others. Initial Sepsis Screen: Does the patient meet any 2 criteria? No. Patient's initial sepsis screen is negative. Does the patient have a suspected source of infection? No. Patient's initial sepsis screen is negative. Care prior to arrival: None. 11:41 Method Of Arrival: Wheelchair tw2 11:41 Acuity: MOHIT 3 tw2 Triage Assessment: 11:43 General: Appears uncomfortable, Behavior is quiet. Pain: Complains of pain in abdomen. tw2 Neuro: Reports dizziness. GI: Reports lower abdominal pain, upper abdominal pain, nausea, vomiting. 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 - Social history:: Smoking status: . - Ebola Screening: : Patient denies travel to an Ebola-affected area in the 21 days before illness onset. Screenin:29 Abuse screen: Denies threats or abuse. Nutritional screening: No deficits noted. tw2 Tuberculosis screening: No symptoms or risk factors identified. Fall Risk None identified. Assessment: 12:30 General: Appears in no apparent distress. uncomfortable, Behavior is calm, cooperative, em Denies fever. Pain: Complains of pain in head Pain currently is 10 out of 10 on a pain scale. Neuro: Level of Consciousness is awake, alert, obeys commands, Oriented to person, place, time, situation, Appropriate for age Skip Operator are equal bilaterally Moves all extremities. Speech is normal, Facial symmetry appears normal, Reports dizziness. Cardiovascular: Denies chest pain, Capillary refill < 3 seconds Patient's skin is warm and dry. Rhythm is sinus rhythm. Respiratory: Airway is patent Respiratory effort is even, unlabored, Respiratory pattern is regular, symmetrical. GI: Abdomen is flat, Reports nausea, vomiting, Patient currently denies. Derm: Skin is intact, is healthy with good turgor, Skin is pink, warm \T\ dry. Musculoskeletal: Capillary refill < 3 seconds, Range of motion: intact in all extremities. 12:30 Reassessment: I agree with assessment completed by Ady Black LVN . aa5 13:42 Reassessment: Patient appears in no apparent distress at this time. Patient and/or em family updated on plan of care and expected duration. Pain level reassessed. Patient is alert, oriented x 3, equal unlabored respirations, skin warm/dry/pink. 14:30 Reassessment: Patient appears in no apparent distress at this time. Patient and/or em family updated on plan of care and expected duration. Pain level reassessed. Patient is alert, oriented x 3, equal unlabored respirations, skin warm/dry/pink. wheeled to MRI via wheelchair Patient states feeling better. Patient states symptoms have improved. 16:30 Reassessment: Patient appears in no apparent distress at this time. Patient and/or em family updated on plan of care and expected duration. Pain level reassessed. Patient is alert, oriented x 3, equal unlabored respirations, skin warm/dry/pink. Vital Signs: 11:42 BP 137 / 78; Pulse 86; Resp 17; Temp 98.6(TE); Pulse Ox 99% on R/A; Weight 78.47 kg; tw2 Height 5 ft. 9 in. (175.26 cm); Pain 10/10; 12:45 BP 137 / 78; Pulse 85; Resp 16; Pulse Ox 100% on R/A; Pain 10/10; em 13:42 BP 139 / 77; Pulse 83; Resp 18; Pulse Ox 99% on R/A; em 15:00 BP 123 / 69; Pulse 76; Resp 18; Pulse Ox 99% on R/A; em 16:00 BP 117 / 72; Pulse 76; Resp 18; Pulse Ox 99% on R/A; Pain 7/10; em 11:42 Body Mass Index 25.55 (78.47 kg, 175.26 cm) tw2 ED Course: 11:39 Patient arrived in ED. as 11:42 Triage completed. tw2 11:43 Arm band placed on. tw2 11:47 Bed in low position. Call light in reach. Adult w/ patient. tw2 11:55 Davidson Chua PA is PHCP. [facility] 11:55 Kingston Cristina MD is Attending Physician. jm 12:09 Ady Black LVN is Primary Nurse. em 12:36 CT Head Brain wo Cont In Process Unspecified. EDMS 13:08 EKG done, by conveyor technician. reviewed by Davidson KRAMER. at1 15:37 MRI - Brain Wo Cont In Process Unspecified. EDMS 16:59 No provider procedures requiring assistance completed. IV discontinued, intact, em bleeding controlled, No redness/swelling at site. Pressure dressing applied. Administered Medications: 12:42 Drug: NS 0.9% 1000 ml Route: IV; Rate: 1 bolus; Site: right antecubital; aa5 14:30 Follow up: IV Status: Completed infusion; IV Intake: 1000ml em 12:43 Drug: Zofran 4 mg Route: IVP; Site: right antecubital; aa5 14:30 Follow up: Response: No adverse reaction; Nausea is decreased em 13:00 Drug: Meclizine 50 mg Route: PO; em 14:30 Follow up: Response: No adverse reaction; Marked relief of symptoms em 16:57 Drug: Tylenol 650 mg Route: PO; em 16:57 Follow up: Response: Medication administered at discharge. em Point of Care Testing: Blood Glucose: 11:46 Blood Glucose: 255 mg/dL; tw2 Ranges: Intake: 14:30 IV: 1000ml; Total: 1000ml. em Outcome: 16:35 Discharge ordered by . parag 16:59 Discharged to home via wheelchair, with family. em 16:59 Condition: good 16:59 Discharge instructions given to patient, family, Instructed on discharge instructions, follow up and referral plans. medication usage, Demonstrated understanding of instructions, follow-up care, medications, Prescriptions given X 2. 17:15 Patient left the ED. em Signatures: Dispatcher [employer] EDMS Davidson Chua PA PA jmm Ady Black, PLUMBER ASSISTANT PLUMBER ASSISTANT em Blanca Gayle Audri, RN RN aa5 Mahogany Goodman, weight inspector EKG Tat1 Sofi Byrnes RN RN tw2 Corrections: (The following items were deleted from the chart) 18:53 12:30 Neuro: Level of Consciousness is awake, alert, obeys commands, Oriented to aa5 person, place, time, situation, Appropriate for age Reports dizziness, em
--- NOTE | 2019-04-07 16:38 | EDPHYS ---
Physician Documentation [facility] Name: Estelle Ashley Age: 49 yrs Sex: Female : 1970 Arrival Date: 04/07/2019 Time: 11:39 Bed 19 Private MD: ED Physician Kingston Cristina HPI: 04/07 12:26 This 49 yrs old Female presents to ER via Wheelchair with complaints of jmm Dizziness, Vomiting. 12:26 The patient presents with dizziness. Onset: The symptoms/episode began/occurred jmm acutely, 2 day(s) ago. Modifying factors: The symptoms are alleviated by holding head still, the symptoms are aggravated by movement of head, standing up. Associated signs and symptoms: Pertinent negatives: chest pain. This is a 49 year old female with a history of DM, HTN, that presents to the ED with complaints of dizziness which began after awakening 2 days ago. Patient states she has had similar episodes of dizziness in the past she attributes to elevated BP and increased BGL. . 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 - Social history:: Smoking status: . - Ebola Screening: : Patient denies travel to an Ebola-affected area in the 21 days before illness onset. ROS: 12:26 Constitutional: Negative for fever, chills, and weight loss, Cardiovascular: Negative jmm for chest pain, palpitations, and edema, Respiratory: Negative for shortness of breath, cough, wheezing, and pleuritic chest pain. 12:26 Neuro: Positive for dizziness. 12:26 All other systems are negative. Exam: 12:26 Constitutional: This is a well developed, well nourished patient who is awake, alert, jmm and in no acute distress. Head/Face: atraumatic. Eyes: EOMI, no conjunctival erythema appreciated ENT: Moist Mucus Membranes Neck: Trachea midline, Supple Chest/axilla: Normal chest wall appearance and motion. Cardiovascular: Regular rate and rhythm. No edema appreciated Respiratory: Normal respirations, no respiratory distress appreciated Abdomen/GI: Non distended, soft Back: Normal ROM Skin: General appearance color normal MS/ Extremity: Moves all extremities, no obvious deformities appreciated, no edema noted to the lower extremities Neuro: Awake and alert, normal gait Psych: Behavior is normal, Mood is normal, Patient is cooperative and pleasant 12:26 Neuro: Cerebellar function: normal finger to nose testing. 12:26 Psych: Behavior/mood is pleasant, cooperative. Vital Signs: 11:42 BP 137 / 78; Pulse 86; Resp 17; Temp 98.6(TE); Pulse Ox 99% on R/A; Weight 78.47 kg; tw2 Height 5 ft. 9 in. (175.26 cm); Pain 10/10; 12:45 BP 137 / 78; Pulse 85; Resp 16; Pulse Ox 100% on R/A; Pain 10/10; em 13:42 BP 139 / 77; Pulse 83; Resp 18; Pulse Ox 99% on R/A; em 15:00 BP 123 / 69; Pulse 76; Resp 18; Pulse Ox 99% on R/A; em 16:00 BP 117 / 72; Pulse 76; Resp 18; Pulse Ox 99% on R/A; Pain 7/10; em 11:42 Body Mass Index 25.55 (78.47 kg, 175.26 cm) tw2 MDM: 12:03 Patient medically screened. [facility] 16:31 Data reviewed: vital signs, nurses notes. Counseling: I had a detailed discussion with parag the patient and/or guardian regarding: the historical points, exam findings, and any diagnostic results supporting the discharge/admit diagnosis, lab results, radiology results, the need for outpatient follow up, to return to the emergency department if symptoms worsen or persist or if there are any questions or concerns that arise at home. Response to treatment: the patient's symptoms have mildly improved after treatment, and as a result, I will discharge patient. 04/07 11:58 Order name: Glucose, Ancillary Testing; Complete Time: 12:05 EDAK 04/07 12:06 Order name: Basic Metabolic Panel [facility] 04/07 12:06 Order name: CBC with Diff [facility] 04/07 12:06 Order name: LFT's [facility] 04/07 12:06 Order name: Magnesium [facility] 04/07 12:06 Order name: NT PRO-BNP [facility] 04/07 12:06 Order name: PT-INR [facility] 04/07 12:06 Order name: Troponin (emerg Dept Use Only) [facility] 04/07 12:09 Order name: CT Head Brain wo Cont; Complete Time: 13:42 [facility] 04/07 14:02 Order name: Carotid Artery Bilateral US [facility] 04/07 14:02 Order name: MRI - Brain Wo Cont; Complete Time: 16:53 [facility] 04/07 16:26 Order name: US; Complete Time: 16:53 [facility] 04/07 12:06 Order name: EKG; Complete Time: 12:07 [facility] 04/07 12:06 Order name: Cardiac monitoring; Complete Time: 13:39 [facility] 04/07 12:06 Order name: EKG - Nurse/Tech; Complete Time: 13:39 [facility] 04/07 12:06 Order name: IV Saline Lock; Complete Time: 13:39 [facility] 04/07 12:06 Order name: Labs collected and sent; Complete Time: 13:39 [facility] 04/07 12:06 Order name: O2 Per Protocol; Complete Time: 13:39 [facility] 04/07 12:06 Order name: O2 Sat Monitoring; Complete Time: 13:39 jm Administered Medications: 12:42 Drug: NS 0.9% 1000 ml Route: IV; Rate: 1 bolus; Site: right antecubital; aa5 14:30 Follow up: IV Status: Completed infusion; IV Intake: 1000ml em 12:43 Drug: Zofran 4 mg Route: IVP; Site: right antecubital; aa5 14:30 Follow up: Response: No adverse reaction; Nausea is decreased em 13:00 Drug: Meclizine 50 mg Route: PO; em 14:30 Follow up: Response: No adverse reaction; Marked relief of symptoms em 16:57 Drug: Tylenol 650 mg Route: PO; em 16:57 Follow up: Response: Medication administered at discharge. em Point of Care Testing: Blood Glucose: 11:46 Blood Glucose: 255 mg/dL; tw2 Ranges: Critical Glucose Levels:Adult <50 mg/dl or >400 mg/dl <40 mg/dl or >180 mg/dl Disposition: 04/08 07:20 Co-signature as Attending Physician, Kingston Cristina MD I agree with the assessment and tw4 plan of care. Disposition: 04/07/19 16:35 Discharged to Home. Impression: Vertigo , Vomiting. - Condition is Stable. - Discharge Instructions: Vertigo. - Prescriptions for Zofran ODT 4 mg Oral tablet,disintegrating - place 1 tablet by TRANSLINGUAL route every 4-6 hours; 20 tablet. Meclizine 25 mg Oral Tablet - take 1 tablet by ORAL route every 8 hours As needed; 30 tablet. - Medication Reconciliation Form, Thank You Letter, Antibiotic Education, Prescription Opioid Use form. - Follow up: Private Physician; When: 2 - 3 days; Reason: Recheck today's complaints, Continuance of care, Re-evaluation by your physician. Signatures: Dispatcher [employer] EDMS Davidson Chua PA PA jmm Munoz, Edgar, MASSOTHERAPIST MASSOTHERAPIST Ashley Cardenas, RN RN aa5 Sofi Byrnes RN RN tw2 Kingston Cristina MD MD tw4 Corrections: (The following items were deleted from the chart) 04/07 17:15 16:35 04/07/2019 16:35 Discharged to Home. Impression: Vertigo ; Vomiting. Condition is em Stable. Forms are Medication Reconciliation Form, Thank You Letter, Antibiotic Education, Prescription Opioid Use. Follow up: Private Physician; When: 2 - 3 days; Reason: Recheck today's complaints, Continuance of care, Re-evaluation by your physician. parag
[2019-04-07] MEDS ORDERED: ACETAMINOPHEN 325 MG TABLET ONE (16:55)
[2019-04-07 17:25] VITALS: TEMP 98.6
[2019-04-07 17:27] VITALS: O2SAT 99
[2019-04-07 17:30] VITALS: BP 117/72
== END 2019-04-07 17:15 | disposition home or self-care (01) ==
LOC: ER 11:37
DX: R11.10 Vomiting, unspecified (principal); I10 Essential (primary) hypertension; E11.9 Type 2 diabetes mellitus without complications; Z88.5 Allergy status to narcotic agent
CPT/HCPCS: 36415; 70450; 70551; 80048; 80076; 82947; 83735; 83880; 84484; 85025; 85610; 93005; 93880; 96361; 96374; 99284; J2405; J7030; J8597

== ENCOUNTER 2021-03-13 15:11 | Emergency (ER) | payer SELFPAY ==
--- NOTE | 2021-03-13 16:04 | ER ---
Nurse's Notes [facility] Name: Estelle Ashley Age: 51 yrs Sex: Female : 1970 Arrival Date: 03/13/2021 Time: 15:12 Bed DIS2 Private MD: Diagnosis: Urticaria, unspecified Presentation: 03/13 15:30 Chief complaint: Patient states: About two weeks ago noticed 'small red bumps' on DEBBIE vg1 arms. Stated 'the bumps popped and the rash seemed to spread down my arms'. States at about the same time started a new medication 'Pioglitazone' for DM. Pt DEBBIE appears to be swollen and red. Coronavirus screen: Vaccine status: Patient reports receiving the 2nd dose of the covid vaccine. Client denies travel out of the [place] in the last 14 days. Ebola Screen: Patient negative for fever greater than or equal to 101.5 degrees Fahrenheit, and additional compatible Ebola Virus Disease symptoms. Initial Sepsis Screen: Does the patient meet any 2 criteria? No. Patient's initial sepsis screen is negative. Does the patient have a suspected source of infection? No. Patient's initial sepsis screen is negative. Risk Assessment: Do you want to hurt yourself or someone else? Patient reports no desire to harm self or others. Onset of symptoms was February 27, 2021. 15:30 Method Of Arrival: Ambulatory vg1 15:30 Acuity: MOHIT 4 vg1 Triage Assessment: 15:30 General: Appears in no apparent distress. uncomfortable, Behavior is calm, cooperative. vg1 Pain: Complains of pain in right arm and left arm Pain currently is 9 out of 10 on a pain scale. Derm: Rash noted that is itchy, red, on right arm and left arm. 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 - Social history:: Smoking status: Patient reports the use of cigarette tobacco products, smokes one-half pack cigarettes per day. Screenin:44 Abuse screen: Denies threats or abuse. Denies injuries from another. Nutritional iw screening: No deficits noted. Tuberculosis screening: No symptoms or risk factors identified. Fall Risk None identified. Assessment: 15:44 General: Appears in no apparent distress. Behavior is calm, cooperative. Neuro: Level iw of Consciousness is awake, alert, obeys commands, Oriented to person, place, time, situation, Moves all extremities. Full function. Cardiovascular: Patient's skin is warm and dry. Respiratory: Respiratory effort is even, unlabored, Respiratory pattern is regular, symmetrical. Derm: Rash noted that is on right arm and left arm. Vital Signs: 15:30 BP 129 / 83; Pulse 78; Resp 16; Temp 98.2; Pulse Ox 100% ; Weight 80.74 kg; Height 5 vg1 ft. 7 in. (170.18 cm); Pain 9/10; 15:30 Body Mass Index 27.88 (80.74 kg, 170.18 cm) vg1 ED Course: 15:12 Patient arrived in ED. as 15:30 Arm band placed on. vg1 15:33 Triage completed. vg1 15:39 Honey Duarte, RN is Primary Nurse. iw 15:39 Roberto Carlos Bolanos NP is PHCP. pm1 15:39 Arlene Fernandez MD is Attending Physician. pm1 Administered Medications: No medications were administered Outcome: 16:03 Discharge ordered by . pm1 16:10 Patient left the ED. iw Signatures: Blanca Gayle as Honey Duarte RN RN iw Roberto Carlos Bolanos NP MIXER DIAMOND POWDER pm1 Marianne Duff RN RN vg1 Corrections: (The following items were deleted from the chart) 15:36 15:30 BP 129 / 83; Pulse 78bpm; Resp 16bpm; Pulse Ox 100%; Temp 98.2F; vg1 vg1
--- NOTE | 2021-03-13 16:04 | EDPHYS ---
Physician Documentation [facility] Name: Estelle Ashley Age: 51 yrs Sex: Female : 1970 Arrival Date: 03/13/2021 Time: 15:12 Bed DIS2 Private MD: ED Physician Arlene Fernandez HPI: 03/13 16:03 This 51 yrs old Female presents to ER via Ambulatory with complaints of Rash. pm1 16:03 The patient's rash thought to be caused by medication. The rash is located on the right pm1 arm and left arm. The rash can be described as urticarial. Onset: The symptoms/episode began/occurred 2 week(s) ago. Associated signs and symptoms: Pertinent positives: itching, Pertinent negatives: fever, swelling of lips, swelling of throat, swelling of tongue, wheezing. Severity of symptoms: in the emergency department the symptoms are unchanged. Treatment given at home: Benadryl, OTC lotion/cream. The patient has not experienced similar symptoms in the past. The patient has been recently seen by a physician: started on a new oral medication for diabetes two weeks ago. Took two doses and developed a rash to bilateral arms. Patient did not take any further doses. IT COORDINATOR: 15:30 LMP N/A - Post-menopause vg1 Historical: - Allergies: 15:33 Hydrocodone-Acetaminophen; vg1 - Home Meds: 15:33 atorvastatin 40 mg Oral tab 1 tab once daily [Active]; metformin 500 mg Oral tab 2 tabs vg1 2 times per day [Active]; lisinopril 2.5 mg Oral tab 1 tab once daily [Active]; glipizide 5 mg Oral tab 1 tab 2 times per day [Active]; - PMHx: 15:33 Diabetes - NIDDM; Hypertension; macular degeneration; neuropathy; vg1 - Immunization history:: Client reports receiving the 2nd dose of the Covid vaccine. - Social history:: Smoking status: Patient reports the use of cigarette tobacco products, smokes one-half pack cigarettes per day. ROS: 16:03 Constitutional: Negative for fever, chills, and weight loss, Cardiovascular: Negative pm1 for chest pain, palpitations, and edema, Respiratory: Negative for shortness of breath, cough, wheezing, and pleuritic chest pain. 16:03 Eyes: Negative for injury, pain, redness, and discharge, ENT: Negative for injury, pain, and discharge. 16:03 Neuro: Negative for headache, weakness, numbness, tingling, and seizure. 16:03 Skin: Positive for rash, of the right arm and left arm. 16:03 All other systems are negative. Exam: 16:03 Constitutional: This is a well developed, well nourished patient who is awake, alert, pm1 and in no acute distress. Head/Face: Normocephalic, atraumatic. 16:03 Cardiovascular: Exam negative for acute changes, Rate: normal, Rhythm: regular, Pulses: no pulse deficits are appreciated. 16:03 Respiratory: Exam negative for acute changes, respiratory distress, shortness of breath. 16:03 Skin: Appearance: normal except for affected area, consistent with urticaria, on the dorsal aspect of right and left forearm and palmar aspect of right and left forearm. 16:03 Neuro: Exam negative for acute changes, Orientation: is normal, Mentation: is normal, Motor: is normal, moves all fours, Sensation: no obvious gross deficits. Vital Signs: 15:30 BP 129 / 83; Pulse 78; Resp 16; Temp 98.2; Pulse Ox 100% ; Weight 80.74 kg; Height 5 vg1 ft. 7 in. (170.18 cm); Pain 9/10; 15:30 Body Mass Index 27.88 (80.74 kg, 170.18 cm) vg1 MDM: 15:49 Patient medically screened. pm1 16:02 Data reviewed: vital signs. Data interpreted: Pulse oximetry: on room air is 100 %. pm1 Interpretation: normal. Counseling: I had a detailed discussion with the patient and/or guardian regarding: the historical points, exam findings, and any diagnostic results supporting the discharge/admit diagnosis, the need for outpatient follow up, a family practitioner, to return to the emergency department if symptoms worsen or persist or if there are any questions or concerns that arise at home. Administered Medications: No medications were administered Disposition: 18:10 Co-signature as Attending Physician, Arlene Fernandez MD PA/BARBER SHOP OPERATOR's history reviewed, ma2 patient interviewed, and examined. I agree with assessment and care plan and confirm the diagnosis (es) above. Disposition Summary: 03/13/21 16:03 Discharge Ordered Location: Home pm1 Problem: new pm1 Symptoms: have improved pm1 Condition: Stable pm1 Diagnosis - Urticaria, unspecified pm1 Followup: pm1 - With: Emergency Department - When: As needed - Reason: Worsening of condition Followup: pm1 - With: Private Physician - When: 2 - 3 days - Reason: Recheck today's complaints, Continuance of care, Re-evaluation by your physician Discharge Instructions: - Discharge Summary Sheet pm1 - Hives pm1 Forms: - Medication Reconciliation Form pm1 - Thank You Letter pm1 - Antibiotic Education pm1 - Prescription Opioid Use pm1 Prescriptions: - Benadryl 25 mg Oral Capsule - take 1 capsule by ORAL route every 6 hours As needed; 30 tablet; Refills: 0, pm1 Product Selection Permitted - Pepcid 20 mg Oral Tablet - take 1 tablet by ORAL route every 12 hours for 10 days; 20 tablet; Refills: 0, pm1 Product Selection Permitted - Medrol (Ricardo) 4 mg Oral Tablets, Dose Pack - take 1 tablet by ORAL route as directed - follow package instructions; 1 pm1 packet; Refills: 0, Product Selection Permitted Signatures: Robreto Carlos Bolanos NP BARBER SHOP OPERATOR pm1 Arlene Fernandez MD MD ma2 Marianne Duff, RN RN vg1
[2021-03-13 16:28] VITALS: BP 129/83; TEMP 98.2; O2SAT 100
== END 2021-03-13 16:10 | disposition home or self-care (01) ==
LOC: ER 15:11
DX: L50.9 Urticaria, unspecified (principal); E11.9 Type 2 diabetes mellitus without complications; F17.210 Nicotine dependence, cigarettes, uncomplicated; I10 Essential (primary) hypertension; Z88.5 Allergy status to narcotic agent
CPT/HCPCS: 99281